=== PATIENT | female | born 1955 | race Caucasian/White ===

== ENCOUNTER → 2024-03-31 10:19 | Outpatient (REF) | payer OTHER, SELFPAY | LOC: RAD 10:19 | PROVIDERS: ATTENDING PHYSICIAN Surgery Vascular Surgery; FAMILY PHYSICIAN Internal Medicine; REFERRING PHYSICIAN Internal Medicine Cardiovascular Disease | DX: I73.9 Peripheral vascular disease, unspecified (principal) | CPT/HCPCS: 75635; Q9967 ==

== ENCOUNTER 2024-05-17 06:00 | Inpatient (IN) | payer OTHER, MEDICARE, SELFPAY ==
[2024-05-13 09:28] VITALS: BMI 33.9
[2024-05-13 10:07] LABS: % Basophils 1.1 % (0-2); % Eosinophils 2.7 % (0-6); % Immature Granulocytes 0.2 % (0-0.5); % Lymphocytes 28.8 % (20.5-51.1); % Neutrophils 60.2 % (42.2-75.2); Absolute Basophils 0.1 10^3/uL (0-0.2); Absolute Eosinophils 0.2 10^3/uL (0-0.7); Absolute Lymphocytes 2.4 10^3/uL (1.2-3.4); Absolute Monocytes 0.6 10^3/uL (0.1-0.6); Blood Urea Nitrogen 23 mg/dl (7-17); Calcium 9.7 mg/dl (8.4-10.2); Carbon Dioxide 28 mmol/L (22-30); Chloride 98 mmol/L (98-107); Estimated Creatinine Clearance 67 ml/min; Glucose 98 mg/dl (70-99); Hematocrit 37.4 % (37.0-47.0); Hemoglobin 12.8 g/dL (12.0-16.0); Mean Corp Hgb Conc. 34.2 g/dL (33.0-37.0); Mean Corpuscular Hgb 30.2 pg (27.0-31.0); Mean Corpuscular Volume 88.2 fL (81.0-99.0); Mean Platelet Volume 9.5 fL (7.4-10.4); Nucleated Red Blood Cells % 0 %; Platelet Count 210 10^3/uL (130-400); Potassium 4.5 mmol/L (3.5-5.1); Red Blood Cell Count 4.24 10^6/uL (4.20-5.40); Sodium 139 mmol/L (135-145); White Blood Cell Count 8.3 10^3/uL (4.8-10.8); eGFR > 60.00
[2024-05-13 10:11] LABS: INR 0.96; PT 13.3 Sec (11.4-14.6)
[2024-05-13 10:12] LABS: APTT 31.7 Sec (23.4-35.0)
[2024-05-17] VITALS (25 sets, daily range): BP systolic 75–147; BP diastolic 40–94; BMI 33.6
[2024-05-17] MEDS: BACTROBAN NASAL 1 GRAM NASAL (06:50)
[2024-05-17] MEDS: PERIDEX 0.12% ORAL RINSE 15 ML PO (06:51)
--- NOTE | 2024-05-17 07:01 | W.SUR.PREOP ---
Pre-Operative Surgical Note
-
I have examined this patient prior to the performance of the scheduled procedure.
The patient's condition is unchanged from the time of the current History and
Physical and the patient is able to undergo the scheduled procedure.
[2024-05-17 12:13] LABS: ACT-LR - POC 276 Seconds (116-155)
[2024-05-17 12:24] LABS: B.E. - POC -4.4 mmol/L; Glucose - POC 160 mg/dl (70-99); HCO3 - POC 22 mmol/L (21-28); Hematocrit - POC 32 % PCV (37-47); Hemodilution- POC No; Ionized Calcium - POC 0.99 mmol/L (1.15-1.33); Lactate - POC 1.19 mmol/L (0.36-0.75); O2 Saturation %Calculated-POC 98.4 % (94-98); PCO2 - POC 42 mmHg (35-48); PO2 - POC 123 mmHg (83-108); Potassium - POC 3.6 mmol/L (3.5-5.1); Sodium - POC 138 mmol/L (136-145); pH - POC 7.32 (7.35-7.45)
--- NOTE | 2024-05-17 14:08 | W.SUR.POST ---
Surgical Immediate Post Op
Note
Pre Op Diagnosis: PAD
Post Op Diagnosis: PAD
Procedure Performed: Aorto bi fem bypass with bilateral femoral endarterectomies
Primary Surgeon: Jamaal Patel MD
Product Assembler: JENNIFER Frazier
Anesthesia: GETA
Estimated Blood Loss: 1 L EBL, 670ml in cell saver
Fluids: See anesthesia flow sheet
Drains/Shunts: N/A
Specimens/Cultures: Femoral plaque
Doppler/Duplex/Angio (Y/N): Y, doppler
Complications: none
Operative Findings: successful aorto bi femoral bypass
--- NOTE | 2024-05-17 14:29 | W.PN.UPDATE ---
Update Note
Progress Note Update
Obtained verbal consent from patient's spouse Kit Mahajan to run exposure panel.
[2024-05-17] MEDS: NEO-SYNEPHRINE 250 IV (14:36)
[2024-05-17] MEDS: DILAUDID PCA 30 IV (15:00)
[2024-05-17] MEDS: SUBLIMAZE 25 MCG IV (15:07)
[2024-05-17 15:16] LABS: INR 1.29; PT 16.7 Sec (11.4-14.6)
[2024-05-17 15:17] LABS: APTT 28.8 Sec (23.4-35.0); Hematocrit 38.4 % (37.0-47.0); Hemoglobin 13.4 g/dL (12.0-16.0); Mean Corp Hgb Conc. 34.9 g/dL (33.0-37.0); Mean Corpuscular Hgb 29.8 pg (27.0-31.0); Mean Corpuscular Volume 85.5 fL (81.0-99.0); Mean Platelet Volume 9.5 fL (7.4-10.4); Platelet Count 182 10^3/uL (130-400); Red Blood Cell Count 4.49 10^6/uL (4.20-5.40); Red Cell Dist. Width 14.6 % (11.5-14.5); White Blood Cell Count 23.3 10^3/uL (4.8-10.8)
[2024-05-17] MEDS: NSS 500 IV (15:27)
[2024-05-17 15:42] LABS: Blood Urea Nitrogen 17 mg/dl (7-17); Calcium 6.6 mg/dl (8.4-10.2); Carbon Dioxide 18 mmol/L (22-30); Chloride 108 mmol/L (98-107); Estimated Creatinine Clearance 86 ml/min; Glucose 156 mg/dl (70-99); Potassium 3.6 mmol/L (3.5-5.1); Sodium 136 mmol/L (135-145); eGFR > 60.00
[2024-05-17] MEDS: NSS 1000 IV ×2 (16:00→18:21)
--- NOTE | 2024-05-17 16:29 | PTCARENOTE ---
Received patient to room 3363. Patient handoff completed with PATTERN KEEPER. patient is AAOx4, on simple mask, oxygen saturation 100%. Patient is Sinus rhythm on monitor, YAMIL gtt running at 40mcg/min. MAP 88. Pressure measured by jelly Lay'ed to
atmospheric pressure and leveled at phlebostatic axis. Patient has one unit of blood running in by gravity, also has dilaudid SCOOP MACHINE OPERATOR and NSS infusing peripherally. Patient has right [place] sump , connected it to wall suction. Patient has Midline
incision and bilateral groin incisions, all with ZAKIYA dressings, blinking orange. Villa draining clear urine. Pulses by doppler. Will review orders, oriented patient to room, call dougherty within reach.
--- NOTE | 2024-05-17 16:32 | CON.INTV ---
Consultation
Consultation Request
Date/Time Consultation Requested: 05/17/2024 - 1244
Date/Time Consultation Performed: 05/17/2024 - 1307
Requesting Provider: JENNIFER James
Performing Provider: Madhu Neves MD
Reason for Consultation: s/p aortobifemoral bypass
Medical History
-
Chief Complaint: Elective lower extremity bypass + endarterectomies
History of Present Illness:
69-year-old female former tobacco smoker with a past medical history of PAD with intermittent claudication, right carotid artery stenosis, hyperlipidemia, hypertension, and history of bowel palpitations who presents with elective lower extremity
femoral bypass with femoral endarterectomies. Patient known to vascular surgery service with last visit on 04/16/[address] Patel. Patient has extensive atherosclerotic disease which was shown on CTA abdominal aorta with runoff from 03/31/2024.
The distal abdominal aorta has >70% stenosis just proximal to the iliac bifurcation. She has severe multifocal stenoses throughout the iliofemoral, femoral-popliteal, and infrapopliteal arteries with three-vessel runoff on the left and at least a
two-vessel runoff on the right. Also occlusion of the left common and internal iliac arteries with distal reconstitution via the epigastric artery. Bilateral internal iliac arteries are occluded. Vascular intervention was discussed and patient
agreed to an aortobifemoral artery bypass with possible endarterectomies. Today she underwent aortobifemoral bypass with bilateral femoral neurectomies with no immediate complications. Postoperatively she did require 2 units PRBC transfusions due
to bleeding. She also was hypotensive with SBP in the 80s and required Hans-Synephrine. Patient being transferred to the ICU for further care, and help desk technician services consulted for additional management/recommendations.
Patient arrived to the ICU at approximately 4:30 PM on 05/17/2024. I saw her immediately afterwards. She was resting in bed in no acute distress. Her main complaint is that she is thirsty and has dry mouth. Heart rate 97, BP via left radial
A-line 126/65, BP via NIBP: 145 127, saturating 99% on RA with NGT on LCWS; she is currently on Hans-Synephrine at 30mcg/min.
PMHx: Hypertension, hyperlipidemia, PAD with intermittent claudication, former tobacco smoker, heart palpitations, right carotid artery stenosis, history of atypical chest pain
PSHx: Tonsillectomy, cholecystectomy, left broken shoulder surgery
Past Medical History
Past Medical History: Other (Negative unless mentioned above)
Past Surgical History: Other (Negative unless mentioned above)
Social History
Tobacco: Former Smoker (Previously smoked 3 PPD x 30 years - quit roughly in 1998)
Alcohol: None
Drug: None
Employment: Not Employed ([employer])
Family History
Family History: CAD (Father), Cancer (Mother: Colon cancer) and Other (Mother: History of strokes/TIA)
Allergies / Home Medications
Allergies
Allergy/AdvReac Type Severity Reaction Status Date / Time
cilostazol Allergy Severe Verified 05/17/24 06:21
Tachycardia
Home Medications
�Medication �Instructions �Recorded �Confirmed �Last Taken �Type
aspirin 81 mg tablet,delayed 81 mg PO DAILY 05/11/24 05/17/24 05/17/24 04:00 History
release
atorvastatin 40 mg tablet 40 mg PO HS 05/11/24 05/17/24 05/15/24 20:00 History
olmesartan 40 1 tab PO DAILY 05/11/24 05/17/24 05/16/24 06:00 History
mg-hydrochlorothiazide 25 mg tablet
temazepam 15 mg capsule 15 mg PO HS PRN sleep 05/11/24 05/11/24 Unknown History
Review of Systems
-
History Source: Patient
All other systems: Negative unless noted
Vitals / Labs / Diagnostic Testing
Vital Signs
Temp Pulse Resp BP Pulse Ox
98.1 F 88 16 97/57 100
05/17/24 06:10 05/17/24 15:15 05/17/24 15:13 05/17/24 15:15 11/11/24 15:15
Lab Data
05/17/24 14:58
Laboratory Results
05/17/24
14:58
PT 16.7 H
INR 1.29
APTT 28.8
Diagnostic Testing:
Physical Exam
-
HEENT: Normocephalic and Anicteric
Cardiovascular: S1/S2 and Peripheral Edema (negative)
Respiratory: Clear, Wheeze (negative), Rales (negative), Rhonchi (negative) and Non-Labored Respirations
GI: Soft, Distended (Abdominal obesity), Non Tender and Normal Bowel Sounds
Neurology: AO x 3
Skin: Warm, Dry and Other (Vertical bandage along left side of abdomen + bandages along bilateral groins)
General: Respiratory Distress (negative), Comfortable, Chills (negative) and Sweats (negative)
Assessment
-
Assessment: 69-year-old female former tobacco smoker with a past medical history of PAD with intermittent claudication, right carotid artery stenosis, hyperlipidemia, hypertension, and history of bowel palpitations who presents with elective lower
extremity femoral bypass with femoral endarterectomies. Patient known to vascular surgery service with last visit on 04/16/[address] Patel. Patient has extensive atherosclerotic disease which was shown on CTA abdominal aorta with runoff from
03/31/2024. The distal abdominal aorta has >70% stenosis just proximal to the iliac bifurcation. She has severe multifocal stenoses throughout the iliofemoral, femoral-popliteal, and infrapopliteal arteries with three-vessel runoff on the left and
at least a two-vessel runoff on the right. Also occlusion of the left common and internal iliac arteries with distal reconstitution via the epigastric artery. Bilateral internal iliac arteries are occluded. Vascular intervention was discussed and
patient agreed to an aortobifemoral artery bypass with possible endarterectomies. Today she underwent aortobifemoral bypass with bilateral femoral neurectomies with no immediate complications. Postoperatively she did require 2 units PRBC
transfusions due to bleeding. She also was hypotensive with SBP in the 80s and required Hans-Synephrine. Patient being transferred to the ICU for further care, and help desk technician services consulted for additional management/recommendations.
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
Impression:
#PAD s/p aortobifemoral bypass with bilateral femoral endarterectomies (POD #0)
#Acute anemia due to above (s/p 2 units PRBC in PACU on 05/17/2024)
#Leukocytosis � likely reactive due to above
#Metabolic acidosis with normal anion gap with acute respiratory acidosis (under-compensated) - suspected to be due to surgery with transient hypotension with lactic acidosis
#Lactic acidosis
#Hypocalcemia
#Former tobacco smoker with >90 pack-year Hx (quit 1998)
#HTN
#HLD
#Right carotid artery stenosis
#Obesity (BMI: 33.6)
Plan:
Postoperative surgical intensive care unit monitoring
Supplemental oxygen as needed to maintain SpO2 >90-94%
prn nebulized bronchodilators
Incentive spirometry encouraged 10x per hour for at least 4 hrs a day
Aspiration precautions
Pain control
Continue LCWS via NGT
- Keep NPO until advised otherwise by surgery
Neuro and vascular checks per protocol
Maintain MAP>65 currently on Hans-Synephrine at 30mcg/min --> wean as tolerated
Replete electrolytes with K>4, Mg>2
Maintain euglycemia with goal BG 140-180
Vascular surgery following-correspondence and operative notes reviewed
Transfuse blood products as needed to keep Hb>7g/dL, and plt>50k (given post-operative status)
Given that she quit smoking >15 years ago, she does not qualify for lung cancer screening via LDCT chest
DVT prophylaxis
Early nutrition
Early mobilization as tolerated
Critical care statement: A total of 43 minutes of critical care time was provided for this patient today. This includes management of unstable vital signs, evaluation of the patient at bedside, reviewing the patient's pertinent medical records
including radiographs, microbiology, laboratory evaluations, and discussion with primary team, consultants, pharmacy, nutrition, physical therapy, case management, charge nurse, critical care nursing, and respiratory therapy.
Data:
CTA Abd aorta with runoff 03/31/2024:
Marked atherosclerotic disease throughout the arterial vasculature of the abdomen, pelvis, and bilateral lower extremities discussed in detail above. The distal abdominal aorta demonstrates greater than 70% stenosis just proximal to the iliac
bifurcation. There is occlusion of the left common and internal iliac arteries with distal reconstitution via the epigastric artery. Bilateral internal iliac arteries are occluded. Severe multifocal stenoses throughout the iliofemoral, femoral
popliteal, and infrapopliteal arteries with at least a two-vessel runoff on the right (right posterior tibial artery is questionably patent) and a 3 vessel runoff on the left.
--- NOTE | 2024-05-17 16:38 | OR.RPT ---
Operative Report
Operative Report
PROCEDURE DATE: 05/17/2024
Preoperative diagnosis: Debilitating bilateral lower extremity claudication and early ischemic rest pain.
Postoperative diagnosis: Same
Procedure:
1. Aortobifemoral artery bypass with 14 mm x 7 mm bifurcated Hemashield dacron graft.
2. Bilateral femoral endarterectomies.
Surgeon: Jorge
Artillery Meteorological Man: LUIS Vidal, required for all aspects of procedure including assistance with traction/countertraction, following a suture line, assistance with closure.
Complications: None
Anesthesia: General
Indications for procedure:
Debilitating bilateral lower extremity claudication. In addition had numbness/tingling/early rest pain like symptoms requiring her to get up from bed and/or walk around at night. Risk/benefit/alternatives of revascularization fully discussed.
Patient with significant aorta/iliac artery occlusive disease as well as bilateral common femoral/femoral bifurcation plaque stenoses. Patient understood all wish to proceed.
Description of procedure:
Patient was identified brought to the operating room placed on the table in supine position. After the adequate administration of anesthesia she was prepped and draped in the standard surgical fashion. A standard preoperative timeout was
undertaken and everybody was in agreement the plan. Longitudinal incision made in the right groin that was carried through skin subcutaneous tissue. Moderate habitus resulting in moderate depth of subcutaneous tissue. Dissected down to the level
of the inguinal ligament. Any lymphatic type vessels or structures were ligated between silk ties and divided. I dissected the common femoral artery as it emerged from underneath the malignant. I carefully dissected the common femoral artery to
the femoral bifurcation. The SFA was noted to be soft about 3 to 4 cm beyond the origin and a vessel loop passed around it which was double looped but not yet tightened. Next, I dissected back to the origin of the profunda. I dissected a few
centimeters beyond the origin. A crossing vein was ligated between silk ties and divided. Circumferential dissection was undertaken and a vascular passed around the profunda here. It was noted to be reasonably soft. Now I dissected underneath
the inguinal ligament and the circumflex iliac vein or vein of sorrow was clipped and divided. I initiated the retroperitoneal tunnel from here.
Now returned my attention to the left groin. Similar incision and dissection was undertaken. Again moderate habitus resulting in moderate depth of subcutaneous tissue. I dissected down to the level inguinal ligament ligating any lymphatic
structures between silk ties and then dividing them. Similar exposure of the common femoral and then the femoral bifurcation was undertaken. The SFA was soft just beyond the origin and circumferentially dissected here. Profunda was also noted to
be soft just beyond the origin and vascular passed around it here. Any additional branches were also controlled with Vesseloops. Again I dissected underneath inguinal ligament and ligated/clipped and divided the circumflex iliac vein and then
initiated a retroperitoneal tunnel from here.
I now turned my attention to the abdomen. Standard midline laparotomy incision was undertaken. Patient's habitus resulted in significant subcutaneous depth/fatty tissue. Therefore the electrocautery was used to dissect down to the level of the
linea alba. It was at least 7 to 8 cm of subcutaneous fat down to this level. Once I dissected the linea alba with the electrocautery, I then grasped the peritoneum carefully and incised it sharply with the Metzenbaum. I then entered the
peritoneal cavity. I swept my finger to ensure no adhesions. I then opened the entirety of the peritoneum along the length of the incision. The transverse colon was reflected cephalad, and manual retraction was used to reflect the small bowel to
the right lower quadrant. As such I was able to sharply dissect the duodenum/tissues surrounding it off the retroperitoneum. Once I completed this, I inserted Omni self-retaining retractor system. Next, I incised the posterior
peritoneum/retroperitoneum over the aorta. I then dissected this to the level of the left renal artery which I could see which was just below or at the level of the renal vein I could see crossing. The aorta was somewhat soft here although I could
palpate some plaque in it. For about 4 cm and then the aorta became very hard with circumferential calcified plaque. The WILLIAM was carefully dissected and a vessel loop passed around it. I then continued to dissect to the level of the aortic
bifurcation. Both iliacs were severely hardened. The mid to distal aorta and the iliacs were also hard and that I did not think they were easily clampable. At this point I very carefully circumferentially dissected the aorta in the immediate
infrarenal segment and passed an umbilical tape so that I could place a Derra or Satinsky type clamp and transect the aorta just distal to there. I then tried to circumferentially dissect the aorta just proximal to the WILLIAM so that I could oversew
the stump there. It was a severely hardened aorta. I noted significant venous bleeding from the right posterior tissues of the aorta. I was able to quickly identify that there was a caval bleed. It became apparent that there was a branch that
had avulsed off. I clipped the branch distally. I then finger controlled the bleeding while I placed a running 5-0 Prolene suture on the cava and the rent. As such I was able to seal up this bleeding point and then tied down my suture.
Hemostasis was fully noted here. It appeared that this was a posterior vein branch that connected to the renal vein. (Ran posterior to the aorta and then there was a confluence with the renal vein). I clipped the other side of this vein. Now I
had control. At this point I felt that I would just place a clamp and crush the plaque laden aortic tissues distally and then oversew the distal aortic stump after I transected the aorta as best I could. I now created retroperitoneal tunnels
following the iliacs to the groins where I had initiated the retroperitoneal tunnels. Careful finger blunt dissection was undertaken taking care to stay directly on top of the external iliac arteries so as to avoid any injury to ureter or other
structures. I was able to pass aortic clamp through first from the right side than the left side and then position and umbilical tape. Now that I had my retroperitoneal tunnels made, I then gave the patient an appropriate dose of heparin. After 3
minutes heparin circulation time, I then clamped the infrarenal aorta with a Derra clamp. I then transected it a couple centimeters beyond there. Of note, I had clamped the aorta distally just proximal to the WILLIAM. There was circumferential plaque
but the lumen was widely patent at the transection site. I then tried to oversew the distal aortic stump. Would prove very challenging due to the heavy nature of the plaque. But I ran a few suture lines using 4-0 Prolene and 3-0 Prolene running
suture. In addition, I placed 2 heavy silk ties slightly more distally. Together these were able to control any backbleeding. I transected the WILLIAM and there was really no flow in the WILLIAM (chronically occluded). Therefore I then clipped it. At
this point I brought a 14 mm x 7 mm bifurcated Hemashield dacron graft onto the field. I trimmed the main body portion, and sewed an end-to-end anastomosis to the proximal infrarenal aorta. Care was taken to take large posterior bites inclusive of
a posterior lumbar branch there that I had clipped and divided. Due to circumferential plaque throughout the aorta, this proved to be very challenging but I was able to complete the anastomosis. I placed a couple repair 3-0 Prolene [id number]
type sutures prior to releasing my clamp. Once I felt that the suture line would be hemostatic I then clamped the graft limbs and then released my Derra clamp on the aorta. There was excellent pulsatile flow into the graft limbs. The suture
line. Hemostatic. Now I passed my iliac limbs of the graft through the retroperitoneal tunnels to the groins bilaterally.
I first began with the right groin. I tightened a doubly vessel loop on the proximal common femoral artery (though to palpation and felt completely occluded with bulky plaque). I placed profunda clamps on the SFA and profunda. I made an
arteriotomy on the distal common femoral artery extending onto the SFA. I extended onto the SFA until it was relatively soft and beyond the majority the plaque. The wall in the common femoral was fairly thinned more proximally and I had great
concern going more proximally therefore. In addition given that there was no real reason to retrograde perfused the pelvis (chronically occluded internal iliac arteries) I felt that I would just leave the proximal common femoral artery plaque. I
used a [place] to endarterectomized the plaque at the distal common femoral artery onto the SFA. I was able to achieve a nice) the SFA. I then grasped the plaque and everted out of the origin of the profunda. However I difficulty seeing my endpoint
very well and the profundus of plaque went further down than I hoped and I had not made an arteriotomy onto the profunda but rather was looking down the barrel of it. I therefore then gained further exposure on the profunda and clamped the branch
points carefully dissecting each of the branches. I then elected to transect the common femoral artery distally. I did this and then I was able to look down the barrel of the profunda and then nice and cleanly get out any residual debris and
confirm a good endpoint now. Now had good endpoints on the SFA and profunda. I confirmed no residual debris after removing any fine debris with fine forceps. The arteriotomy had hooded onto the SFA overarching the origin the profunda. And now I
transected the distal common femoral artery. Therefore I elected to do an end-to-end anastomosis beveling the iliac limb of the graft and putting it into and onto the SFA overarching the profunda. This was done with a running 5-0 Prolene suture.
Prior to completing and tying down my suture line I backbled the makah arteries which backbled well. I then flushed out the graft limb and then completed and tied in my suture line. Now I released my clamps and there was excellent pulsatile flow
in the SFA and profunda. Doppler confirmed excellent signals that were heavily graft augmented. I placed heavy silk ties on the proximal common femoral artery so that any small inflow makah bleeding or branch bleeding would be controlled and this
did control that. At this point I was very satisfied. Hemostasis was noted in the suture line. I then turned my attention to the left groin.
In the left groin I placed profunda clamps on the SFA and profunda origins. I made an arteriotomy in the distal common femoral artery and put it onto the SFA where it was soft. This was done with an 11 blade and a Obrien scissor. There was a bulky
plaque at the origin of the profunda and I was able to use a [place] to endarterectomized this plaque and I nicely en bloc was able to everted out of the origin of the SFA, the origin of the profunda and then back slightly in the common femoral artery
so as to allow myself a nice rim of sewing. Any fine debris was then removed with fine forceps. I then beveled the graft and sewed an end-to-side anastomosis using a running 5-0 Prolene suture. Prior to completing tied to my suture line I
backbled and forward bled the makah artery and then flushed out the graft. I then completed and tied down my suture line. Next I released flow in the makah artery. There was excellent pulsatile flow. Doppler confirmed excellent signals in the
SFA and profunda which were heavily graft augmented. Hemostasis was noted in the suture line.
At this point I turned my attention back to the abdomen. I reexposed the proximal anastomosis and graft region. A couple venous oozers were clipped. I then irrigated and achieved full hemostasis. There was slight oozing from the posterior wall
of the artery where I had placed to repair suture. No pulsatile bleeding though. Topical hemostatic agents were used and full hemostasis was noted. I given protamine to reverse the heparin. I now confirmed hemostasis again. I irrigated. I then
used 3-0 Vicryl suture to close the retroperitoneal tissues over the graft. Next, I confirmed positioning of the NG tube. I restored the small bowel to their makah position and the omentum was restored to its normal position. The abdominal
cavity was then closed using #1 running PDS suture. This was tied down. The extensive subcutaneous fatty layer was closed with running 2-0 Vicryl suture. Skin clips were then applied. The groins were then confirmed to be hemostatic. They were
both irrigated fully. They were closed in layers using 2-0 Vicryl followed by 3-0 Vicryl running suture followed by skin clips. Patient tolerated the procedure well. She had excellent dopplerable bilateral pedal signals (right DP and PT, left PT
strongly, DP slightly less strongly).
--- NOTE | 2024-05-17 16:45 | PTCARENOTE ---
ZAKIYA dressings all blinking orange. Vascular ELECTRICAL CONTROL ASSEMBLER notified at bedside
[2024-05-17] MEDS: CALCIUM GLUCONATE 100 IV (17:08)
[2024-05-17 17:37] LABS: Glucose - Point of Care 157 mg/dl (70-99)
[2024-05-17] MEDS: OFIRMEV 100 IV ×2 (18:11→23:00)
[2024-05-17 18:20] LABS: Hepatitis B Surface Antigen Negative (Negative)
[2024-05-17 18:37] LABS: Hepatitis B Surface Antibody Negative; Hepatitis C Antibody Negative (Negative)
--- NOTE | 2024-05-17 18:37 | PTCARENOTE ---
Unit of blood finished infusing, have titrated john gtt down to 20 as charted in worklist. patient has CIVIL CELEBRANT. Calcium IV given, ofirmev hanging. Pain is tolerated at this time. Doppler signals remain unchanged.
--- NOTE | 2024-05-17 18:45 | SUR.PHASEI ---
pacu addendum - patient post op bi-fem and right fem endart. in pacu. arrived with low BP - Hans gtt up and running and IV fluids running wide, - sleeping but arouses - c/o of pain abd and right groin - medicating carefully with low BP and patient
does fall asleep mid sentenc. Titrating hans for BP - Suly Arciniega DIAGNOSTIC RADIOLOGIST TT with assessment and BP varying from right arm cuff to left radial eneida. Using Left eneida for titration. Dr Patel and Suly Arciniega DIAGNOSTIC RADIOLOGIST visit in pacu - reviewed doppler signal pulses. PT's
strongest signals bilaterally. Per Dr Patel - 500cc fluid bolus given and packed cells hung after bolus. Hans at 40 mcg/min. Bp > 100. Medicated with REACH TRUCK OPERATOR dilaudid - patient instructed in use and small dose of fentanyl due to low BP. Dr Patel aware
that all ZAKIYA dressings flashing orange. appear to have good seals. Suly Arciniega TT with critical value of calcium 6.6. Discharge to ICCU - hand off at bedside.
Family updated in waiting room
--- NOTE | 2024-05-17 20:00 | PTCARENOTE ---
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 IV's WNL- IVF, Hans, Dilaudid RECEPTIONIST AIRLINE LOUNGE infusing as documented. L sandra AL WNL. Sat 97% on 2LNC. R NGT to LIWS draining small amt bilious output.
Villa with adequate amt output. POC discussed, call dougherty with pt.
[2024-05-17 22:21] LABS: Hematocrit 40.3 % (37.0-47.0); Hemoglobin 14.4 g/dL (12.0-16.0); Mean Corp Hgb Conc. 35.7 g/dL (33.0-37.0); Mean Corpuscular Hgb 30.3 pg (27.0-31.0); Mean Corpuscular Volume 84.7 fL (81.0-99.0); Mean Platelet Volume 9.5 fL (7.4-10.4); Platelet Count 157 10^3/uL (130-400); Red Blood Cell Count 4.76 10^6/uL (4.20-5.40); Red Cell Dist. Width 14.6 % (11.5-14.5); White Blood Cell Count 18.1 10^3/uL (4.8-10.8)
[2024-05-17 22:46] LABS: ALT (SGPT) 17 U/L (0-35); AST (SGOT) 41 U/L (14-36); Albumin 2.5 g/dl (3.5-5.0); Alkaline Phosphatase 46 U/L (38-126); Blood Urea Nitrogen 17 mg/dl (7-17); Calcium 6.9 mg/dl (8.4-10.2); Carbon Dioxide 16 mmol/L (22-30); Chloride 110 mmol/L (98-107); Estimated Creatinine Clearance 76 ml/min; Glucose 145 mg/dl (70-99); Potassium 4.1 mmol/L (3.5-5.1); Sodium 136 mmol/L (135-145); Total Bilirubin 1.2 mg/dl (0.2-1.3); Total Protein 4.9 g/dl (6.3-8.2); eGFR > 60.00
[2024-05-17] MEDS: HEPARIN 5000 UNITS SC (23:01)
[2024-05-18] VITALS (38 sets, daily range): BP systolic 80–128; BP diastolic 33–88; BMI 35.7
--- NOTE | 2024-05-18 | PTCARENOTE ---
no changes in pt assessment.
[2024-05-18] MEDS: NSS 1000 IV ×6 (01:06→19:48)
[2024-05-18 01:20] LABS: Glucose - Point of Care 137 mg/dl (70-99)
[2024-05-18] MEDS: OFIRMEV 100 IV ×2 (03:32→08:59)
[2024-05-18 03:33] LABS: Hematocrit 39.2 % (37.0-47.0); Hemoglobin 13.8 g/dL (12.0-16.0); Mean Corp Hgb Conc. 35.2 g/dL (33.0-37.0); Mean Corpuscular Hgb 30.5 pg (27.0-31.0); Mean Corpuscular Volume 86.5 fL (81.0-99.0); Mean Platelet Volume 9.5 fL (7.4-10.4); Platelet Count 169 10^3/uL (130-400); Red Blood Cell Count 4.53 10^6/uL (4.20-5.40); Red Cell Dist. Width 14.8 % (11.5-14.5); White Blood Cell Count 16.2 10^3/uL (4.8-10.8)
[2024-05-18 03:40] LABS: INR 1.14; PT 15.2 Sec (11.4-14.6)
[2024-05-18 03:41] LABS: APTT 29.1 Sec (23.4-35.0)
--- NOTE | 2024-05-18 04:00 | PTCARENOTE ---
no changes in assessment, CHG cloths/nava care. call dougherty with pt.
[2024-05-18 04:04] LABS: Blood Urea Nitrogen 19 mg/dl (7-17); Calcium 6.9 mg/dl (8.4-10.2); Carbon Dioxide 18 mmol/L (22-30); Chloride 112 mmol/L (98-107); Estimated Creatinine Clearance 76 ml/min; Glucose 134 mg/dl (70-99); Magnesium 1.7 mg/dl (1.6-2.3); Phosphorus 3.6 mg/dl (2.5-4.5); Potassium 4.1 mmol/L (3.5-5.1); Sodium 138 mmol/L (135-145); eGFR > 60.00
[2024-05-18] MEDS: CALCIUM GLUCONATE 100 IV ×2 (05:02→16:13)
[2024-05-18] MEDS: PROTONIX IV 40 MG IV (07:26)
[2024-05-18] MEDS: HEPARIN 5000 UNITS SC ×2 (07:26→16:13)
[2024-05-18] MEDS: ASPIRIN 300 MG RECTAL (07:27)
--- NOTE | 2024-05-18 07:29 | W.PN.VS ---
Addendum entered and electronically signed by Jamaal Patel MD 05/18/24 08:25:
Seen and examined with LUIS Arciniega. Agree with findings as noted below. Patient is without significant complaints. Pain is well-tolerated. Notes that her preoperative numbness in her feet is completely resolved. On exam/ Vital signs reviewed - and
noted. UOP good, reviewed. she is awake and alert. NG tube is slightly bilious. Output reviewed. Abdomen is soft, nondistended. Dressing is clean dry and intact. Minimal appropriate incisional tenderness. Groins are flat bilaterally.
Dressings clean dry and intact bilaterally. Feet are both warm with excellent dopplerable signals. Labs reviewed. Plan/as discussed and noted below.
Original Note:
Today's Communication / Plan
-
Patient seen and examined with Dr. Jamaal Patel, below plan reviewed with attending.
Assessment/Plan
-
Assessment: 69-year-old female POD #1 aortobifem bypass with bilateral femoral endarterectomies
Plan:
Continue strict n.p.o.
Continue NG tube with low continuous suction
Continue hourly I and O monitoring
Discontinue arterial line
Continue Villa catheter for strict I and O monitoring
Can get out of bed to chair
Continue ICU level of care today
DVT prophylaxis
GI prophylaxis
Encourage incentive spirometry
Subjective Data
-
Date of Service: May 18, 2024
Patient seen and examined at bedside, reports well managed post operative pain. Denies nausea, vomiting, fever, and chills. Mostly reports difficulty sleeping overnight. Does endorse improvement to near resolution in preoperative
numbness/paresthesia at bilateral feet.
Objective Data
-
Vital Signs
Temp Pulse Resp BP Pulse Ox
98.9 F 65 11 109/87 98
05/18/24 03:48 05/18/24 07:00 05/18/24 07:00 05/17/24 20:00 05/18/24 07:00
Intake and Output
05/17/24 05/18/24 05/19/24
06:59 06:59 06:59
Intake Total 2889.4 / 3039.4 150 / 150
Output Total 1200 / 1200
Balance 1689.4 / 1839.4 150 / 150
Intake:
IV fluids (Total) 2889.4 / 3039.4 150 / 150
Nss 1,000 ml @ 150 mls/hr IV . 2099 / 2250 150 / 150
[id number] [facility] Rx#:[id number]
john 89 / 89
nss 700 / 700
rubber flap cutter dilaudid 0.4 / 0.4
Amount instilled into GI Tube ( 0 / 0
Total)
Pioneer Sump 0 / 0
Output:
Gastrointestinal tube output ( 185 / 185
Total)
Pioneer Sump 185 / 185
Urine, Villa 1015 / 1015
Lab Results
05/18/24 03:18
05/18/24 03:18
Calcium 6.9 mg/dl (8.4-10.2) L* 05/18/24 03:18
Phosphorus 3.6 mg/dl (2.5-4.5) 05/18/24 03:18
Magnesium 1.7 mg/dl (1.6-2.3) 05/18/24 03:18
Total Bilirubin 1.2 mg/dl (0.2-1.3) 05/17/24 22:08
AST 41 U/L (14-36) H 05/17/24 22:08
ALT 17 U/L (0-35) 05/17/24 22:08
Alkaline Phosphatase 46 U/L (38-126) 05/17/24 22:08
Total Protein 4.9 g/dl (6.3-8.2) L 05/17/24 22:08
Albumin 2.5 g/dl (3.5-5.0) L 05/17/24 22:08
Physical Exam
-
AAO x 3, no apparent distress
No tachycardia
No dyspnea on room air
ABD nondistended, midline abdominal incision dressing CDI, tender over midline incision
Bilateral groin site dressing CDI, no evidence of hematoma, ulcer on compartment soft
Villa draining clear yellow urine
Bilateral feet warm, DP/PT pulse by Doppler
[2024-05-18] MEDS: APRESOLINE 5 MG IV (07:51)
--- NOTE | 2024-05-18 08:00 | PTCARENOTE ---
Received patient from material handler 1st shift. patient is AAOx4. Patient is on 2L nasal cannula saturating 100%. Left radial rosanne is readying hypertensive, PRN hydralazine administered. Rosanne zeroed to atmospheric pressure, leveled at phlebostatic axis.
patient remains NPO. Christine NG connected to low intermittent wall suction. patient may have ice chips sparingly. Pulse checks remain unchanged, by dopper bilaterally. ZAKIYA dressings intact in bilateral groins and midline abdomen. Will review
orders. plan to discontinue Rosanne and get patient OOB.
--- NOTE | 2024-05-18 08:22 | W.PN.INTV ---
Today's Communication / Plan
Recommendations
Up OOB as tolerated
NGT to LIWS
NPO
Pain control
Post-operative management per vascular surgery
Encourage IS use q1hr while awake
Neurovascular checks
Continue with ICU level of care until deemed stable enough for downgrade per vascular surgery. Shear Grinder Operator service will continue to follow along while she remains in the ICU.
Assessment
-
Assessment: 69-year-old female former tobacco smoker with a past medical history of PAD with intermittent claudication, right carotid artery stenosis, hyperlipidemia, hypertension, and history of heart palpitations who presents with elective lower
extremity femoral bypass with femoral endarterectomies. Patient known to vascular surgery service with last visit on 04/16/[address] Patel. Patient has extensive atherosclerotic disease which was shown on CTA abdominal aorta with runoff from
03/31/2024. The distal abdominal aorta has >70% stenosis just proximal to the iliac bifurcation. She has severe multifocal stenoses throughout the iliofemoral, femoral-popliteal, and infrapopliteal arteries with three-vessel runoff on the left and
at least a two-vessel runoff on the right. Also occlusion of the left common and internal iliac arteries with distal reconstitution via the epigastric artery. Bilateral internal iliac arteries are occluded. Vascular intervention was discussed and
patient agreed to an aortobifemoral artery bypass with possible endarterectomies. Today she underwent aortobifemoral bypass with bilateral femoral neurectomies with no immediate complications. Postoperatively she did require 2 units PRBC
transfusions due to bleeding. She also was hypotensive with SBP in the 80s and required Hans-Synephrine. Patient being transferred to the ICU for further care, and shopfitter services consulted for additional management/recommendations.
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
Impression:
#PAD s/p aortobifemoral bypass with bilateral femoral endarterectomies (POD #1)
#Acute anemia due to above (s/p 3 units PRBC in PACU on 05/17/2024)
#Leukocytosis � likely reactive due to above
#Metabolic acidosis with normal anion gap with acute respiratory acidosis (under-compensated) - suspected to be due to surgery with transient hypotension with lactic acidosis
#Lactic acidosis
#Hypocalcemia
#Former tobacco smoker with >90 pack-year Hx (quit 1998)
#HTN
#HLD
#Right carotid artery stenosis
#Obesity (BMI: 33.6)
Plan:
Postoperative surgical intensive care unit monitoring
Supplemental oxygen as needed to maintain SpO2 >90-94%
prn nebulized bronchodilators - not currently bronchospastic
Incentive spirometry encouraged 10x per hour for at least 4 hrs a day
Aspiration precautions
Pain control
Continue LIWS via NGT
- Keep NPO until advised otherwise by surgery
- Serial abdominal exams
Neuro and vascular checks per protocol
Maintain MAP>65 currently on Hans-Synephrine at 30mcg/min --> wean as tolerated
Replete electrolytes with K>4, Mg>2
Maintain euglycemia with goal BG 140-180
Vascular surgery following-correspondence and operative notes reviewed
Transfuse blood products as needed to keep Hb>7g/dL, and plt>50k (given post-operative status)
Given that she quit smoking >15 years ago, she does not qualify for lung cancer screening via LDCT chest
DVT prophylaxis
Early nutrition
Early mobilization as tolerated
Continue with ICU level of care until deemed stable enough for downgrade per vascular surgery. Shear Grinder Operator service will continue to follow along while she remains in the ICU.
Total time spent today was 76 minutes for this encounter. Time includes reviewing laboratory test/imaging results, reviewing pertinent medical records, obtaining and reviewing medical history, performing an appropriate exam, ordering medications,
tests and procedures. Time also includes documentation of this encounter, coordinating patient care and communicating with other healthcare professionals. Total time does not include separately billed tests performed on this date of service.
Data:
CTA Abd aorta with runoff 03/31/2024:
Marked atherosclerotic disease throughout the arterial vasculature of the abdomen, pelvis, and bilateral lower extremities discussed in detail above. The distal abdominal aorta demonstrates greater than 70% stenosis just proximal to the iliac
bifurcation. There is occlusion of the left common and internal iliac arteries with distal reconstitution via the epigastric artery. Bilateral internal iliac arteries are occluded. Severe multifocal stenoses throughout the iliofemoral, femoral
popliteal, and infrapopliteal arteries with at least a two-vessel runoff on the right (right posterior tibial artery is questionably patent) and a 3 vessel runoff on the left.
Subjective Dataa
Subjective Data
Date of Service:
Date of Service: May 18, 2024
Chief Complaint: Shear Grinder Operator Follow Up
Subjective:
Patient seen and evaluated this morning. Resting in bed in no acute distress. 2 sons, Jorden + Clark, at bedside and all questions were answered. Heart rate 88, BP 110/85 and saturating 99% on room air. Has some lower abdominal pain. NG tube on
low intermittent wall suction. She says that her lower abdominal pain is increasing but it is not severe. She denies nausea, vomiting, chest pain, SOB, MOYER, fevers or chills.
Review of Systems
General: Other (Negative unless mentioned above)
Objective Data
Data Reviewed
Vital Signs / I&O / Oxygen:
Vital Signs
Temp Pulse Resp BP Pulse Ox
98.7 F 88 18 109/87 99
05/18/24 08:01 05/18/24 08:00 05/18/24 08:00 05/17/24 20:00 05/18/24 08:00
Intake and Output
05/17/24 05/18/24 05/19/24
06:59 06:59 06:59
Intake Total 2889.4 / 3039.4 300 / 300
Output Total 1200 / 1230 60 / 60
Balance 1689.4 / 1809.4 240 / 240
SaO2 99
Nasal Cannula flow liters per 2
minute
Physical Exam
General: Respiratory Distress (negative), Comfortable, Chills (negative) and Sweats (negative)
HEENT: Normocephalic and Anicteric
Cardiovascular: S1-S2 and Peripheral Edema (negative)
Respiratory: Wheeze (negative), Crackles (negative), Rhonchi (negative) and Non-Labored Respirations
GI: Soft, Non Distended, Tender (diffusely tender to palpation), NG Tube (on LIWS) and Other (hypoactive BS)
Neurology: AO x 3 and Tremors (negative)
Skin: Warm, Dry, Cyanosis (negative) and Jaundice (negative)
Labs/Micro/Reports
Lab Data
05/18/24 03:18
05/18/24 03:18
Laboratory Results
05/17/24 05/18/24
14:58 03:18
PT 16.7 H 15.2 H
INR 1.29 1.14
APTT 28.8 29.1
--- NOTE | 2024-05-18 10:12 | CM ---
CM following re: discharge planning.
Reviewed pt's chart, met with pt. Pt's and pt's son at bedside.
Pt is a 69 year old female, admitted with primary dx of POD #1 aortobifem bypass with bilateral femoral endarterectomies.
Pt reports she lives with 2SH, 2 steps to enter, has 2 supportive children. 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 No DME, VN or SNF history.
PCP: Nancy Mcadams
Pharmacy: [facility]
D/C plan: home with anticipated no needs. to transport at discharge.
CM will follow with discharge plan updates as hospitalization progresses
--- NOTE | 2024-05-18 11:30 | PTCARENOTE ---
Patient tolerated two hours OOB in chair. Assisted patient back to bed assist x1. Doppler pulses remain unchanged. patient more unsteady when standing to get back to bed, states she is tired. Is having more abdominal pain, ADMINISTRATIVE SALES ASSISTANT dose adjusted.
Urine output for 1100 was only 15ml. 500cc bolus ordered and hanging.
[2024-05-18] MEDS: NSS 500 IV ×2 (11:45→20:14)
--- NOTE | 2024-05-18 12:04 | PTCARENOTE ---
Changed dilaudid DUST BOX TENDER dose. verified with Berlin Rosales RN.
--- NOTE | 2024-05-18 12:40 | PTCARENOTE ---
Cuff placed on left arm, significantly higher in left arm than right.
[2024-05-18 14:57] LABS: Blood Urea Nitrogen 25 mg/dl (7-17); Calcium 7.7 mg/dl (8.4-10.2); Carbon Dioxide 18 mmol/L (22-30); Chloride 111 mmol/L (98-107); Estimated Creatinine Clearance 57 ml/min; Glucose 109 mg/dl (70-99); Potassium 4.2 mmol/L (3.5-5.1); Sodium 137 mmol/L (135-145); eGFR 54.39
[2024-05-18 16:13] LABS: Hematocrit 35.1 % (37.0-47.0); Hemoglobin 12.1 g/dL (12.0-16.0)
[2024-05-18 16:21] LABS: HIV Combo Negative (Negative)
--- NOTE | 2024-05-18 16:45 | PTCARENOTE ---
vascular access team came up and placed two peripheral IVs, both 22s. 1L NSS bolus ordered, spoke with Tia Arciniega, will run bolus at 250mls. repleted calcium and sent repeat H&H. Patient continues to have marginal urinary output. Continuing to
monitor hourly. Patient states pain is 'better and tolerable but rates it 7:10'. Family present at bedside.
[2024-05-18] MEDS: FLEXBUMIN 100 IV (17:30)
--- NOTE | 2024-05-18 17:48 | PTCARENOTE ---
Notified Dr. Patel and Dr. Neves of patient's continued hypotension with bolus. Patient has limited vascular access. PICC line order placed. Ornamental Metal Fabricator Apprentice at bedside to place IJ central line.
--- NOTE | 2024-05-18 18:11 | W.SUR.POST ---
Surgical Immediate Post Op
Note
Bedside Central Line Insertion Procedure
Date of procedure: 05/18/2024
Pre Op Diagnosis: Inadequate IV access; hypotension
Post Op Diagnosis: Same as above
Procedure Performed: Central venous catheter insertion
Primary Surgeon/Proceduralist: Dr. Neves
Secondary Surgeons: N/A
Anesthesia: N/A
Estimated Blood Loss: 5cc
Fluids: N/A
Drains/Shunts: N/A
Specimens/Cultures: N/A
Doppler/Duplex/Angio (Y/N): N/A
Complications: No immediate complications
Operative Findings: 7 rwandan, 16cm long central line inserted into right IJ. Time out performed prior to start of procedure. Verbal + written consent obtained from the patient. Pt placed into Trendelenburg position then procedure started. Pt was
draped in usual fashion using anti-septic technique. Gloves, cap, facemask, hand washing and cleaning her target skin area with chlorhexidine was also performed. Pt then anesthetized with 1% lidocaine without epinephrine. Trocar inserted into
right IJ under ultrasound guidance. Ultrasound probe cover also was used. Blood return seen which was nonpulsatile. Guidewire inserted and trocar was removed entirely. Incision was made over the guidewire and dilator was inserted. Dilator then
removed and triple-lumen central venous catheter was inserted successfully and guidewire was removed entirely. Central line was sutured into place. Blood flow was suctioned out with syringe from all 3 ports and normal saline was able to be flushed
into all 3 ports without resistance. Biopatch placed over central venous catheter hub and the entire hub was covered with a Tegaderm patch. Procedure ended, drape was removed and there were no immediate complications.
[2024-05-18] MEDS: OFIRMEV IV (18:16)
--- NOTE | 2024-05-18 19:12 | PTCARENOTE ---
"Notified Dr. Patel of patient's blood pressure and marginal urine output. Dr. Patel has called, updated him on patient's vital signs and mentation. Patient's mentation unchanged, states that she is tired but otherwise WNL. At last conversation with "Azeb". Patient BP 101/52, NR 109 and Urine output from [id number] was 45. Report given to assistant shift supervisor. shift superintendent caustic cresylate RN will contact Dr. Patel with any changes."
--- NOTE | 2024-05-18 20:00 | PTCARENOTE ---
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 IV's/RIJ WNL- IVF and Dilaudid NUMERICAL CONTROL MACHINE TOOL OPERATOR infusing as documented. R NGT to LIWS draining small amt bilious
output. Dr Patel TT as requested with update- pt's BP improved after multiple IVF boluses prev shift, UO 8p 75cc- improved. 500cc additional bolus to be given per Dr Patel- BDoughertyNP to place order. POC discussed, call dougherty with pt.
[2024-05-18 22:22] LABS: Hematocrit 31.8 % (37.0-47.0); Hemoglobin 10.7 g/dL (12.0-16.0)
[2024-05-19] VITALS (28 sets, daily range): BP systolic 94–135; BP diastolic 44–70; PULSE 98; O2SAT 97; BMI 37.1
--- NOTE | 2024-05-19 | PTCARENOTE ---
Reassessed, no changes in pt assessment.
[2024-05-19] MEDS: OFIRMEV 100 IV ×3 (00:07→12:29)
[2024-05-19] MEDS: NSS 1000 IV (01:40)
--- NOTE | 2024-05-19 04:30 | PTCARENOTE ---
no changes in assessment, CHG, mouth care, nava care.
[2024-05-19 05:05] LABS: Blood Urea Nitrogen 21 mg/dl (7-17); Calcium 7.5 mg/dl (8.4-10.2); Carbon Dioxide 18 mmol/L (22-30); Chloride 115 mmol/L (98-107); Estimated Creatinine Clearance 80 ml/min; Glucose 85 mg/dl (70-99); Magnesium 1.9 mg/dl (1.6-2.3); Phosphorus 2.4 mg/dl (2.5-4.5); Potassium 3.8 mmol/L (3.5-5.1); Sodium 141 mmol/L (135-145); eGFR > 60.00
[2024-05-19 05:15] LABS: Hematocrit 29.7 % (37.0-47.0); Hemoglobin 10.1 g/dL (12.0-16.0); Mean Corpuscular Hgb 29.9 pg (27.0-31.0); Mean Corpuscular Volume 87.9 fL (81.0-99.0); Red Blood Cell Count 3.38 10^6/uL (4.20-5.40); Red Cell Dist. Width 15.2 % (11.5-14.5); White Blood Cell Count 11.7 10^3/uL (4.8-10.8)
[2024-05-19 07:18] LABS: Mean Platelet Volume 9.5 fL (7.4-10.4); Platelet Count 98 10^3/uL (130-400)
--- NOTE | 2024-05-19 07:50 | PTCARENOTE ---
Rec'd pt at 0710 awake alert and oriented resting in bed. Overall states she is feeling better. Speech is clear. Denies dizziness or headache. KAUR. Denies numbness in extremities. Admits to 6/10 mostly abd pain. Using Dilaudid ADJUNCT TRAINER as needed. 0.4mg
dose. 10 min lockout. Max dose 2.4 mg/hr. Skin is pale pink wm and dry. Extremities are pink and warm. + PT and DP pulses to bilateral LE. Respirs are unlabored. Rec'd initally on 2l nc with sats of 98%- changed to RA at 0730 with sats currently of
96%. BS sl decreased at the bases otherwise clear. Getting about 1200 on IS. Encouraged pt to use is. Coughed a moist non-prod cough x1. Monitor SR-ST 88-100. Denies chest pain. +1 generalized anasarca. VS as documented. Abd is round and soft.
Tender to palp with few hypoactive BS. Rec'd pt with R nasir panchal ng that was draining brownish drainage. Dr. Patel in at 0730 and removed NG. Pt denies passing flatus currently. Thermistor nava intact for yellow urine. Midline abd dressing is dry
and intact. ZAKIYA dressing present. Bilatearal groin dressings are D+I with ZAKIYA dressings present. IV NSS infusing at 75 ml/hr via L are IV site. Capped ints intact R hand and L arm. RIJ TLC intact-site wnl. Repositioned. Call dougherty in reach. Plan of
care reviewed with pt.
--- NOTE | 2024-05-19 08:08 | W.PN.VS ---
Today's Communication / Plan
-
Patient seen and evaluated at bedside with Dr. Jamaal Patel, below plan reviewed with attending.
Assessment/Plan
-
Assessment: 69-year-old female POD #2 aortobifem bypass with bilateral femoral endarterectomies
Plan:
NG tube discontinued
Continue I and O monitoring
Continue Villa catheter for strict I and O monitoring, may consider discontinuing later this afternoon
OOB to chair with progression to ambulation as tolerated
PT
Continue ICU level of care today
DVT prophylaxis
GI prophylaxis
Encourage incentive spirometry
Will consider Lasix for diuresis given 24-hour positive fluid status. However, currently favor observing urine output and watching trends.
Subjective Data
-
Date of Service: May 19, 2024
Patient seen and examined at bedside, continues to report well-managed postoperative pain. Denies nausea, vomiting, fever, and chills. Also does not endorse flatus, but denies belching.
Objective Data
-
Vital Signs
Temp Pulse Resp BP Pulse Ox
98.4 F 89 13 119/55 99
05/19/24 07:22 05/19/24 07:00 05/19/24 07:00 05/19/24 07:00 05/19/24 07:00
Intake and Output
05/18/24 05/19/24 05/20/24
06:59 06:59 06:59
Intake Total 2889.4 / 3039.4 6525 / 6600 75 / 75
Output Total 1200 / 1230 1515 / 1585 70 / 70
Balance 1689.4 / 1809.4 5010 / 5015 5 / 5
Intake:
IV fluids (Total) 2889.4 / 3039.4 6325 / 6400 75 / 75
NSS BOLUS 3000 / 3000
Nss 1,000 ml @ 75 mls/hr IV . 2100 / 2250 3225 / 3300 75 / 75
[id number] [facility] Rx#:[id number]
albumin 100 / 100
john 89 / 89
nss 700 / 700
weekday babysitter dilaudid 0.4 / 0.4
IV piggybacks 200 / 200
Amount instilled into GI Tube ( 0 / 0
Total)
Gregg Sump 0 / 0
Output:
Gastrointestinal tube output ( 185 / 185 500 / 500
Total)
Gregg Sump 185 / 185 500 / 500
Urine, Villa 1015 / 1045 1015 / 1085 70 / 70
Lab Results
05/19/24 04:18
05/19/24 04:18
Calcium 7.5 mg/dl (8.4-10.2) L 05/19/24 04:18
Phosphorus 2.4 mg/dl (2.5-4.5) L 05/19/24 04:18
Magnesium 1.9 mg/dl (1.6-2.3) 05/19/24 04:18
Total Bilirubin 1.2 mg/dl (0.2-1.3) 05/17/24 22:08
AST 41 U/L (14-36) H 05/17/24 22:08
ALT 17 U/L (0-35) 05/17/24 22:08
Alkaline Phosphatase 46 U/L (38-126) 05/17/24 22:08
Total Protein 4.9 g/dl (6.3-8.2) L 05/17/24 22:08
Albumin 2.5 g/dl (3.5-5.0) L 05/17/24 22:08
Physical Exam
-
AAO x 3, no apparent distress
No tachycardia
No dyspnea on room air
ABD nondistended, midline abdominal incision dressing CDI, tender over midline incision
Bilateral groin site dressing CDI, no evidence of hematoma, ulcer on compartment soft
Villa draining clear yellow urine
Bilateral feet warm, DP/PT pulse by Doppler
[2024-05-19] MEDS: ASPIRIN 300 MG RECTAL (08:14)
[2024-05-19] MEDS: HEPARIN 5000 UNITS SC ×3 (08:14→23:08)
--- NOTE | 2024-05-19 08:20 | W.PN.INTV ---
Addendum entered and electronically signed by Madhu Neves MD 05/19/24 16:20:
CDI Response:
Acute anemia: Anemia of blood loss following vascular surgery as well as dilutional from IVF
Original Note:
Today's Communication / Plan
Recommendations
Up OOB as tolerated
NGT now removed; continue pain control with serial abdominal exams
NPO
Post-operative management per vascular surgery
Encourage IS use q1hr while awake
Neurovascular checks
Continue with ICU level of care until deemed stable enough for downgrade per vascular surgery. Clinical Information Systems Director service will continue to follow along while she remains in the ICU.
Assessment
-
Assessment: 69-year-old female former tobacco smoker with a past medical history of PAD with intermittent claudication, right carotid artery stenosis, hyperlipidemia, hypertension, and history of heart palpitations who presents with elective lower
extremity femoral bypass with femoral endarterectomies. Patient known to vascular surgery service with last visit on 04/16/[address] Patel. Patient has extensive atherosclerotic disease which was shown on CTA abdominal aorta with runoff from
03/31/2024. The distal abdominal aorta has >70% stenosis just proximal to the iliac bifurcation. She has severe multifocal stenoses throughout the iliofemoral, femoral-popliteal, and infrapopliteal arteries with three-vessel runoff on the left and
at least a two-vessel runoff on the right. Also occlusion of the left common and internal iliac arteries with distal reconstitution via the epigastric artery. Bilateral internal iliac arteries are occluded. Vascular intervention was discussed and
patient agreed to an aortobifemoral artery bypass with possible endarterectomies. Today she underwent aortobifemoral bypass with bilateral femoral neurectomies with no immediate complications. Postoperatively she did require 2 units PRBC
transfusions due to bleeding. She also was hypotensive with SBP in the 80s and required Hans-Synephrine. Patient being transferred to the ICU for further care, and engineering program manager services consulted for additional management/recommendations.
Chronic conditions NURSING CARE ATTENDANT: Hypertension, hyperlipidemia, PAD with intermittent claudication, former tobacco smoker, heart palpitations, right carotid artery stenosis, history of atypical chest pain
Impression:
#PAD s/p aortobifemoral bypass with bilateral femoral endarterectomies (POD #2)
#Acute anemia due to above (s/p 3 units PRBC in PACU on 05/17/2024)
#Hypotension without shock
#Leukocytosis � likely reactive due to above
#Mild�moderate elevation of right hemidiaphragm (most appreciated initially on CXR from 05/18/2024)
#Metabolic acidosis with normal anion gap with acute respiratory acidosis (under-compensated) - suspected to be due to surgery with transient hypotension with lactic acidosis
#Lactic acidosis
#Hypocalcemia
#Former tobacco smoker with >90 pack-year Hx (quit 1998)
#HTN
#HLD
#Right carotid artery stenosis
#Obesity (BMI: 33.6)
Plan:
Postoperative surgical intensive care unit monitoring
Supplemental oxygen as needed to maintain SpO2 >90-94%
prn nebulized bronchodilators - not currently bronchospastic
Incentive spirometry encouraged 10x per hour for at least 4 hrs a day
Aspiration precautions
Pain control with dilaudid KILN FURNITURE CASTER pump with bowel regimen
NGT now removed as of this morning (05/19)
- Defer diet to surgery
- Serial abdominal exams
Neuro and vascular checks per protocol
Maintain MAP>65 currently on Hans-Synephrine at 30mcg/min --> wean as tolerated
Replete electrolytes with K>4, Mg>2
Maintain euglycemia with goal BG 140-180
Vascular surgery following-correspondence and operative notes reviewed
Transfuse blood products as needed to keep Hb>7g/dL, and plt>50k (given post-operative status)
Has required 3 units PRBC transfusion since admission with last PRBC transfusion on 05/17/2024
Given that she quit smoking >15 years ago, she does not qualify for lung cancer screening via LDCT chest
DVT prophylaxis: HSQ
Early nutrition
Early mobilization as tolerated
Continue with ICU level of care until deemed stable enough for downgrade per vascular surgery. Clinical Information Systems Director service will continue to follow along while she remains in the ICU.
Total time spent today was 37 minutes for this encounter. Time includes reviewing laboratory test/imaging results, reviewing pertinent medical records, obtaining and reviewing medical history, performing an appropriate exam, ordering medications,
tests and procedures. Time also includes documentation of this encounter, coordinating patient care and communicating with other healthcare professionals. Total time does not include separately billed tests performed on this date of service.
Data:
CTA Abd aorta with runoff 03/31/2024:
Marked atherosclerotic disease throughout the arterial vasculature of the abdomen, pelvis, and bilateral lower extremities discussed in detail above. The distal abdominal aorta demonstrates greater than 70% stenosis just proximal to the iliac
bifurcation. There is occlusion of the left common and internal iliac arteries with distal reconstitution via the epigastric artery. Bilateral internal iliac arteries are occluded. Severe multifocal stenoses throughout the iliofemoral, femoral
popliteal, and infrapopliteal arteries with at least a two-vessel runoff on the right (right posterior tibial artery is questionably patent) and a 3 vessel runoff on the left.
Subjective Dataa
Subjective Data
Date of Service:
Date of Service: May 19, 2024
Chief Complaint: Clinical Information Systems Director Follow Up
Subjective:
Pt seen and evaluated this AM. BP dropped into 80-90s overnight and given IVF with 3L IVF total. She is sitting in chair this AM in NAD. She is on room air saturating well and breathing comfortably. BP 102/54 and HR 94. Afebrile overnight.
NGT removed this morning. Currently on maintenance IVF with NS 0.9% at 75 cc/hour. Villa remains in place with reduced UOP. She is using her diluadid KILN FURNITURE CASTER pump. No bleeding seen clinically - Hb 10.1 this morning. Still having abdominal pain but
it is not worse than yesterday. She currently denies MOYER, chest pain, nausea, vomiting, diarrhea, fevers or chills.
Review of Systems
General: Other (Negative unless mentioned above)
Objective Data
Data Reviewed
Vital Signs / I&O / Oxygen:
Vital Signs
Temp Pulse Resp BP Pulse Ox
98.4 F 86 14 102/54 94
05/19/24 07:22 05/19/24 09:00 05/19/24 09:00 05/19/24 09:00 05/19/24 09:00
Intake and Output
05/18/24 05/19/24 05/20/24
06:59 06:59 06:59
Intake Total 2889.4 / 3039.4 6525 / 6600 150 / 150
Output Total 1200 / 1230 1515 / 1585 185 / 185
Balance 1689.4 / 1809.4 5010 / 5015 -35 / -35
SaO2 94
Nasal Cannula flow liters per 2
minute
Physical Exam
General: Respiratory Distress (negative), Comfortable, Chills (negative) and Sweats (negative)
HEENT: Normocephalic, Anicteric and Other (Dry mucous membranes)
Cardiovascular: S1-S2 and Peripheral Edema (negative)
Respiratory: Clear, Wheeze (negative), Crackles (negative), Rhonchi (negative) and Non-Labored Respirations
GI: Soft, Non Distended, Tender (diffusely tender to palpation) and Other (hypoactive BS)
Neurology: AO x 3 and Tremors (negative)
Skin: Warm, Dry, Cyanosis (negative) and Jaundice (negative)
Labs/Micro/Reports
Lab Data
05/19/24 04:18
05/19/24 04:18
[2024-05-19] MEDS: DILAUDID PCA 30 IV (09:31)
--- NOTE | 2024-05-19 09:53 | W.PN.UPDATE ---
Update Note
Progress Note Update
Seen and examined with LUIS Arciniega and LUIS Vidal. See their separate note. Agree with findings as noted. Patient doing well this a.m. She is without significant complaints. Abdominal pain/discomfort well-controlled. No flatus yet. No
nausea/vomiting. Intake/output fully reviewed. Vital signs fully reviewed. Abdomen soft, nondistended, nontender. Dressing clean dry and intact. Groins flat bilaterally. Dressings clean dry and intact bilaterally. Feet warm with possible 1+
right DP and left PT palpable, confirmed with excellent Doppler signals. Labs reviewed as well. Plan/as discussed and noted in VIDEO MACHINES MECHANIC note. NG tube discontinued by us. Will decrease IV fluid rate. Possible diuresis before Villa removal. Will
reassess before deciding on diuresis. Out of bed, PT/OT.
--- NOTE | 2024-05-19 09:55 | PTCARENOTE ---
Assisted oob to the chair at 0930 with assist of 2. Initially felt sl dizzy with standing that resolved quickly. HR Initially 120's With standing then down to the 90's. No complaints. Call dougherty in reach.
--- NOTE | 2024-05-19 11:12 | PN.CDI ---
CDI
- -
CDI:
Physician Documentation Request
Admit Date: 05/17/24 06:00
Dear Doctor Edinson,
05/18 progress note states 'PAD s/p aortobifemoral bypass with bilateral femoral endarterectomies (POD #1) #Acute anemia due to above (s/p 3 units PRBC in PACU on 05/17/2024)'
Could you please further clarify, in your progress note, which of the following is the most likely type of acute anemia you are evaluating, monitoring and/or treating?
Acute blood loss anemia
Acute anemia - other- please specify
Other
Use of terms such as suspected, likely, concern for, or probable (associated with a specific diagnosis that is being evaluated, monitored, or treated as if it exists) are acceptable and can be coded in the inpatient setting, when documented at the
time of discharge.
Thank you,
Tete Soria RN, BSN
CDI Specialist
tiger text
Please use your independent medical judgment in providing your response.
[2024-05-19 11:53] LABS: Glucose - Point of Care 71 mg/dl (70-99)
--- NOTE | 2024-05-19 11:54 | PTCARENOTE ---
Assisted back to bed. Tolerating being oob well. Worked with PT earlier. No changes in assessment. Pulses are unchanged. Dressings remain D+I. ZAKIYA dressings x3 in place
--- NOTE | 2024-05-19 12:05 | CM ---
CM following re: discharge planning.
Reviewed pt's chart, met with pt.
Pt reports she feels much better and was working with PT and OT today. Pt is aware that PT and OT recommend home PT/OT and she expressed her agreement. A list of VN vendors provided, pt preferred [facility]. A referral to [facility] made.
D/C plan: home with [facility] and family support. or son to transport at discharge.
CM will follow with discharge plan updaters as hospitalization progress
[2024-05-19] MEDS: FLUSH (NSS) 1 FLUSH IV ×2 (12:30→12:31)
--- NOTE | 2024-05-19 13:52 | PTCARENOTE ---
With dozing sats dipping to 88-89%- placed back on 2l nc with sats up to 97%. No other changes. States shes just tired
[2024-05-19] MEDS: D5/0.9% SODIUM CHLORIDE 1000 IV (14:18)
--- NOTE | 2024-05-19 14:46 | VNURNOTE ---
Home Health Liaison met with patient to discuss [facility] nurse/therapy, visits, schedule and homebound status. Patient would like to discuss home care services with . She understands that visits at home will be 1-2 x per week to assess and teach
medical management.
[facility] brochure provided with contact information. Patient is aware that [facility] will contact them for start of care in 1-2 days after discharge from .
[facility] referral completed in [facility] Port.
--- NOTE | 2024-05-19 15:35 | PTCARENOTE ---
Pts son visiting with pt. in earlier. Currently awake and talking to son. VS as documented. Now that she is awake sats on 2l were 99%- changed back to RA at 1530 and sats currently ew 98%. No complaints. Using Dilaudid HARDNESS INSPECTOR as needed.
--- NOTE | 2024-05-19 17:30 | PTCARENOTE ---
Assisted back oob to the chair with assist of 1. Overall no changes in assessment. Has been able to doze a few times this afternoon. Admits to feeling a little tire - however was able to get oob back into the chair just now with an assist of 1. Gait
is weak but easily able to bear wt. Abd dressing with few spots of old bloody drainage otherwise dry and intact. ZAKIYA drains on abd and groin dressings are flashing green. Sats on RA are 95-97%. VS as documented. Denies nausea but admits to
belching. Villa with avery urine. IV fluids and SANITATION LABORER Dilaudid infusing. Dr. Patel in to see pt and updated. OOb in the chair with call dougherty in reach.
[2024-05-19 18:39] LABS: Glucose - Point of Care 70 mg/dl (70-99)
--- NOTE | 2024-05-19 18:45 | PTCARENOTE ---
Assisted back to bed. Tolerated being oob well. Pulse checks completed with oncoming shift. Pt c/o itching on her arms and legs. No rash noted. Call dougherty in reach. Will update ICU SUPERVISOR WALL MIRROR DEPARTMENT on itching
[2024-05-19] MEDS: BENADRYL 25 MG IV (19:36)
--- NOTE | 2024-05-19 20:30 | PTCARENOTE ---
Alert and oriented, pain controlled with GRAPHIC COORDINATOR dilaudid. Pulses strong via doppler. BP within ordered limits without medications. D5NS as ordered, will recheck as ordered. NGT removed on previous shift. No flatus. Hypoactive bowel sounds. Ice chips as
ordered. Will monitor.
[2024-05-19 23:18] LABS: Glucose - Point of Care 90 mg/dl (70-99)
[2024-05-20] VITALS (19 sets, daily range): BP systolic 115–162; BP diastolic 55–98; PULSE 108; O2SAT 97; BMI 37.3
[2024-05-20] MEDS: D5/0.9% SODIUM CHLORIDE 1000 IV (01:10)
[2024-05-20 04:34] LABS: Hemoglobin 9.7 g/dL (12.0-16.0); Mean Corp Hgb Conc. 33.4 g/dL (33.0-37.0); Mean Corpuscular Hgb 29.4 pg (27.0-31.0); Mean Corpuscular Volume 87.9 fL (81.0-99.0); Mean Platelet Volume 9.6 fL (7.4-10.4); Platelet Count 112 10^3/uL (130-400); Red Cell Dist. Width 14.8 % (11.5-14.5); White Blood Cell Count 10.7 10^3/uL (4.8-10.8)
[2024-05-20 04:59] LABS: Blood Urea Nitrogen 14 mg/dl (7-17); Carbon Dioxide 20 mmol/L (22-30); Chloride 114 mmol/L (98-107); Estimated Creatinine Clearance 91 ml/min; Glucose 95 mg/dl (70-99); Lactic Acid 0.6 mmol/L (0.7-2.0); Magnesium 2.1 mg/dl (1.6-2.3); Potassium 3.4 mmol/L (3.5-5.1); Sodium 141 mmol/L (135-145); eGFR > 60.00
[2024-05-20] MEDS: KCL 270 MEQ IV ×2 (06:19→16:24)
--- NOTE | 2024-05-20 07:36 | W.PN.VS ---
Addendum entered and electronically signed by Jamaal Patel MD 05/20/24 16:32:
Seen and examined earlier this a.m. This is a late entry. Agree with findings and plan as discussed and noted below.
Original Note:
Today's Communication / Plan
-
Patient seen and examined at bedside with Dr. Jamaal Patel, below plan reviewed with attending.
Assessment/Plan
-
Assessment: 69-year-old female POD #3 aortobifem bypass with bilateral femoral endarterectomies
Plan:
Continue I and O monitoring
Lasix 20mg IV for positive fluid balance, will discontinue Villa this afternoon after diureses
OOB to chair with progression to ambulation as tolerated
PT
Can be downgraded to telemetry
DVT prophylaxis
GI prophylaxis
Encourage incentive spirometry
Patient reporting flatus will advance diet to clears
Will attempt peripheral IV placement if unable to ronan PIV, we will consider midline placement in order to dc central line
If patient tolerates PO intake will transition to PO pain medication
Subjective Data
-
Date of Service: May 20, 2024
Patient seen and examined offers no complaints, reports flatus. Denies nausea, vomiting, fever, and chills.
Objective Data
-
Vital Signs
Temp Pulse Resp BP Pulse Ox
99.4 F 99 20 143/55 94
05/20/24 03:09 05/20/24 05:30 05/20/24 05:30 05/20/24 05:06 05/20/24 05:30
Intake and Output
05/19/24 05/20/24 05/21/24
06:59 06:59 06:59
Intake Total 6525 / 6600 2065.1 / 2065.1
Output Total 1515 / 1585 1180 / 1180
Balance 5010 / 5015 885.1 / 885.1
Intake:
IV fluids (Total) 6325 / 6400 1815.1 / 1815.1
D5/0.9% Sodium Chloride 1,000 1125 / 1125
ml @ 75 mls/hr IV .[id number] LESLIE
Rx#:[id number]
NSS BOLUS 3000 / 3000
Nss 1,000 ml @ 75 mls/hr IV . 3225 / 3300 675 / 675
[id number] LESLIE Rx#:[id number]
albumin 100 / 100
glue spreading machine operator dilaudid 15.1 / 15.1
IV piggybacks 200 / 200 250 / 250
Output:
Gastrointestinal tube output ( 500 / 500 75 / 75
Total)
[place] Sump 500 / 500 75 / 75
Urine, Villa 1015 / 1085 1105 / 1105
Lab Results
05/20/24 04:18
05/20/24 04:18
Calcium 8.0 mg/dl (8.4-10.2) L 05/20/24 04:18
Phosphorus 2.4 mg/dl (2.5-4.5) L 05/19/24 04:18
Magnesium 2.1 mg/dl (1.6-2.3) 05/20/24 04:18
Total Bilirubin 1.2 mg/dl (0.2-1.3) 05/17/24 22:08
AST 41 U/L (14-36) H 05/17/24 22:08
ALT 17 U/L (0-35) 05/17/24 22:08
Alkaline Phosphatase 46 U/L (38-126) 05/17/24 22:08
Total Protein 4.9 g/dl (6.3-8.2) L 05/17/24 22:08
Albumin 2.5 g/dl (3.5-5.0) L 05/17/24 22:08
Physical Exam
-
AAO x 3, no apparent distress
No tachycardia
No dyspnea on room air
ABD nondistended, midline abdominal incision dressing CDI, tender over midline incision
Bilateral groin site dressing CDI, no evidence of hematoma, all surrounding compartments soft
Villa draining clear yellow urine
Bilateral feet warm, DP/PT pulse by Doppler
[2024-05-20 07:54] LABS: Glucose - Point of Care 88 mg/dl (70-99)
--- NOTE | 2024-05-20 08:00 | PTCARENOTE ---
Pt rec'd in report from night RN, A0x3 pleasant and cooperative, KAUR, pain well controlled by Dilaudid RIB CHOPPER -currently 5/10 in abdomen. 0.4mg dose, 10 min lockout, Max dose 2.4 mg/hr. Used 3.2 mg overnight per report. Vascular check WNL. Extremities
are pink and warm. + PT and DP pulses to bilateral LE via dopplar. Afebrile,pt maintaining 97% sa02 on room air. BP and HR stable, SR/ST on tele. Round obese abdomen, +flatus, tolerating ice chips overnight, looking forward to drinking ice water.
Abdominal dressings in place, ZAKIYA drain activated with green light on. Vascular team at bedside to round, plan discussed, IVF dc'd, CLD ordered, VAT RN in room to assess pt for PIV access, no success-orders rec'd to pull TL IJ after midline placed.
Villa remains in place this am, as per Dr. Patel, ok to remove after pt diureses today. IV Lasix ordered and given. Pt with no complaints at this time, education provided on how to call for clear liquid tray. Pt declines to get oob this am, wants to
nap this am and get oob at approx 11:30. Safe environment maintained, call dougherty in hand.
--- NOTE | 2024-05-20 08:12 | W.PN.INTV ---
Today's Communication / Plan
Recommendations
Up OOB as tolerated
Pain control with serial abdominal exams
On clear liquid diet - ADAT as per surgery
Post-operative management per vascular surgery
Encourage IS use q1hr while awake
Neurovascular checks
Insert PICC vs midline and remove R-IJ CVC
Continue to trend plt count and H/H --> transfuse if needed to keep plt>50k, Hb>7
Patient is stable for downgrade out of ICU to telemetry - this decision was confirmed with vascular surgery. No additional recommendations at this time - Color Straining Bag Washer/Pulmonary service will now sign off. Please reconsult if there are any additional
questions/concerns, or if patient's respiratory status deteriorates.
Assessment
-
Assessment: 69-year-old female former tobacco smoker with a past medical history of PAD with intermittent claudication, right carotid artery stenosis, hyperlipidemia, hypertension, and history of heart palpitations who presents with elective lower
extremity femoral bypass with femoral endarterectomies. Patient known to vascular surgery service with last visit on 04/16/[address] Patel. Patient has extensive atherosclerotic disease which was shown on CTA abdominal aorta with runoff from
03/31/2024. The distal abdominal aorta has >70% stenosis just proximal to the iliac bifurcation. She has severe multifocal stenoses throughout the iliofemoral, femoral-popliteal, and infrapopliteal arteries with three-vessel runoff on the left and
at least a two-vessel runoff on the right. Also occlusion of the left common and internal iliac arteries with distal reconstitution via the epigastric artery. Bilateral internal iliac arteries are occluded. Vascular intervention was discussed and
patient agreed to an aortobifemoral artery bypass with possible endarterectomies. Today she underwent aortobifemoral bypass with bilateral femoral neurectomies with no immediate complications. Postoperatively she did require 2 units PRBC
transfusions due to bleeding. She also was hypotensive with SBP in the 80s and required Hans-Synephrine. Patient being transferred to the ICU for further care, and embedded software programmer services consulted for additional management/recommendations.
Chronic conditions BODY DESIGNER: Hypertension, hyperlipidemia, PAD with intermittent claudication, former tobacco smoker, heart palpitations, right carotid artery stenosis, history of atypical chest pain
Impression:
#PAD s/p aortobifemoral bypass with bilateral femoral endarterectomies (POD #3)
#Acute anemia due to above (s/p 3 units PRBC in PACU on 05/17/2024)
#Orthopnea suspicious for acute heart failure from hypervolemia
#Hypotension without shock - now normotensive
#Thrombocytopenia - improving
#Leukocytosis � likely reactive due to above - WBC now normalized
#Mild�moderate elevation of right hemidiaphragm (most appreciated initially on CXR from 05/18/2024)
#Metabolic acidosis with normal anion gap with acute respiratory acidosis (under-compensated) - suspected to be due to surgery with transient hypotension with lactic acidosis
#Lactic acidosis - now resolved
#Hypocalcemia
#Former tobacco smoker with >90 pack-year Hx (quit 1998)
#HTN
#HLD
#Right carotid artery stenosis
#Obesity (BMI: 33.6)
Plan:
Postoperative surgical intensive care unit monitoring
Supplemental oxygen as needed to maintain SpO2 >90-94%
prn nebulized bronchodilators - not currently bronchospastic
Incentive spirometry encouraged 10x per hour for at least 4 hrs a day
Aspiration precautions
Pain control with dilaudid OPERATIONS AGENT pump with bowel regimen
NGT now removed as of AM on 05/19
- Defer diet to surgery - currently on CLD
- Serial abdominal exams
Neuro and vascular checks per protocol
Maintain MAP>65 currently on Hans-Synephrine at 30mcg/min --> wean as tolerated
Replete electrolytes with K>4, Mg>2
Maintain euglycemia with goal BG 140-180
Vascular surgery following-correspondence and operative notes reviewed
Continue ASA
Transfuse blood products as needed to keep Hb>7g/dL, and plt>50k (given post-operative status)
Has required 3 units PRBC transfusion since admission with last PRBC transfusion on 05/17/2024
Given that she quit smoking >15 years ago, she does not qualify for lung cancer screening via LDCT chest
DVT prophylaxis: HSQ
Early nutrition
Early mobilization as tolerated
Patient is stable for downgrade out of ICU to telemetry. This decision was confirmed with vascular surgery. No additional recommendations at this time - Color Straining Bag Washer/Pulmonary service will now sign off. Thank you for allowing us to be involved in
the care of this patient. Please reconsult if there are any additional questions/concerns, or if patient's respiratory status deteriorates.
Total time spent today was 36 minutes for this encounter. Time includes reviewing laboratory test/imaging results, reviewing pertinent medical records, obtaining and reviewing medical history, performing an appropriate exam, ordering medications,
tests and procedures. Time also includes documentation of this encounter, coordinating patient care and communicating with other healthcare professionals. Total time does not include separately billed tests performed on this date of service.
Data:
CTA Abd aorta with runoff 03/31/2024:
Marked atherosclerotic disease throughout the arterial vasculature of the abdomen, pelvis, and bilateral lower extremities discussed in detail above. The distal abdominal aorta demonstrates greater than 70% stenosis just proximal to the iliac
bifurcation. There is occlusion of the left common and internal iliac arteries with distal reconstitution via the epigastric artery. Bilateral internal iliac arteries are occluded. Severe multifocal stenoses throughout the iliofemoral, femoral
popliteal, and infrapopliteal arteries with at least a two-vessel runoff on the right (right posterior tibial artery is questionably patent) and a 3 vessel runoff on the left.
Subjective Dataa
Subjective Data
Date of Service:
Date of Service: May 20, 2024
Chief Complaint: Color Straining Bag Washer Follow Up
Subjective:
Patient seen and evaluated this morning. Laying in bed in no acute distress. Heart rate 91, BP 125/68, and saturating 98% on room air. Afebrile overnight. No overnight events reported. Started on clear liquid diet. Still having abd pain, is
5/10 on pain scale. She overall feels well although she does have some discomfort in her inner thighs.
Review of Systems
General: Other (Negative unless mentioned above)
Objective Data
Data Reviewed
Vital Signs / I&O / Oxygen:
Vital Signs
Temp Pulse Resp BP Pulse Ox
99.2 F 105 23 124/70 96
05/20/24 08:05 05/20/24 09:00 05/20/24 09:00 05/20/24 09:00 05/20/24 09:00
Intake and Output
05/19/24 05/20/24 05/21/24
06:59 06:59 06:59
Intake Total 6525 / 6600 2065.1 / 2065.1 0 / 0
Output Total 1515 / 1585 1180 / 1180 230 / 230
Balance 5010 / 5015 885.1 / 885.1 -230 / -230
SaO2 96
Nasal Cannula flow liters per 2
minute
Physical Exam
General: Respiratory Distress (negative), Comfortable, Chills (negative), Sweats (negative) and Good Appetite
HEENT: Normocephalic, Anicteric and Other (Dry mucous membranes)
Cardiovascular: S1-S2, Peripheral Edema (+1 lower extremity pitting edema bilaterally) and Other (Tachycardic)
Respiratory: Wheeze (negative), Crackles (Left base), Rhonchi (negative) and Non-Labored Respirations
GI: Soft, Non Distended, Tender (diffusely tender (mild) to palpation) and Normal Bowel Sounds
Neurology: AO x 3 and Tremors (negative)
Skin: Warm, Dry, Cyanosis (negative) and Jaundice (negative)
Labs/Micro/Reports
Lab Data
05/20/24 04:18
[2024-05-20] MEDS: ASPIRIN RECTAL (08:22)
[2024-05-20] MEDS: LASIX 20 MG IV (08:53)
[2024-05-20] MEDS: HEPARIN 5000 UNITS SC ×2 (08:54→16:24)
[2024-05-20] MEDS: ASPIR LOW (ENTERIC COATED) 81 MG PO (08:54)
--- NOTE | 2024-05-20 11:43 | PTCARENOTE ---
Pt assisted oob to chair, assist x1, tolerated transfer well, c/o mod pain to b/l groins. Diuresing via nava, urine clear. No other changes to assessment at this time.
[2024-05-20 12:07] LABS: Glucose - Point of Care 80 mg/dl (70-99)
[2024-05-20 13:01] LABS: Potassium 3.4 mmol/L (3.5-5.1)
[2024-05-20] MEDS: TYLENOL 650 MG PO ×2 (16:24→21:04)
[2024-05-20] MEDS: COLACE 100 MG PO (16:24)
--- NOTE | 2024-05-20 16:34 | PTCARENOTE ---
Pt reassessed. Per orders, nava catheter dc'd, Dilaudid INSTRUCTOR ROBOTICS dc'd. Orders for PRN and scheduled pain medication rec'd. Downgraded to tele. Continues to tolerate clears. +flatus. PRN Colace added per pt request. Pt ambulating in morejon with therapy.
Assessment otherwise unchanged.
[2024-05-20 18:00] LABS: Glucose - Point of Care 93 mg/dl (70-99)
--- NOTE | 2024-05-20 19:15 | PTCARENOTE ---
rn pediatric icu, pt aao x 3, pt reports pain level tolerable, SR HR 80s, R midline WNL, NV checks as documented, pt assist x 1/walker to bathroom- +BM/+lg amt urine s/p nava removal, HR ST 120s w/ambulation. Sat 96% on RA. KEIRA & B/L groin intact with
ZAKIYA drains. POC discussed, call dougherty with pt.
[2024-05-20] MEDS: LIPITOR 40 MG PO (21:04)
[2024-05-20 21:44] LABS: Glucose - Point of Care 92 mg/dl (70-99)
[2024-05-21] VITALS (7 sets, daily range): BP systolic 131–154; BP diastolic 63–69; PULSE 107; O2SAT 98; BMI 36.6
[2024-05-21] MEDS: HEPARIN 5000 UNITS SC ×4 (00:10→23:37)
[2024-05-21] MEDS: TYLENOL 650 MG PO ×6 (00:11→20:42)
[2024-05-21 05:33] LABS: Hematocrit 30.3 % (37.0-47.0); Hemoglobin 10.6 g/dL (12.0-16.0); Mean Corpuscular Hgb 30.4 pg (27.0-31.0); Mean Corpuscular Volume 86.8 fL (81.0-99.0); Mean Platelet Volume 9.6 fL (7.4-10.4); Platelet Count 129 10^3/uL (130-400); Red Blood Cell Count 3.49 10^6/uL (4.20-5.40); Red Cell Dist. Width 14.4 % (11.5-14.5); White Blood Cell Count 10.4 10^3/uL (4.8-10.8)
[2024-05-21 05:56] LABS: Blood Urea Nitrogen 15 mg/dl (7-17); Calcium 8.1 mg/dl (8.4-10.2); Carbon Dioxide 22 mmol/L (22-30); Chloride 108 mmol/L (98-107); Estimated Creatinine Clearance 105 ml/min; Glucose 92 mg/dl (70-99); Potassium 3.8 mmol/L (3.5-5.1); Sodium 139 mmol/L (135-145); eGFR > 60.00
[2024-05-21 07:42] LABS: Glucose - Point of Care 87 mg/dl (70-99)
--- NOTE | 2024-05-21 08:10 | PTCARENOTE ---
ms sql developer, pt aao x 3, pt reports pain level tolerable, SR HR 80s, R midline WNL, NV checks as documented, pt assist x 1/walker to bathroom- +BM/+lg amt urine. Sat 96% on RA. Midline abd & B/L groin incision intact with ZAKIYA drains. POC
discussed, call dougherty with pt.
[2024-05-21] MEDS: ASPIR LOW (ENTERIC COATED) 81 MG PO (08:18)
--- NOTE | 2024-05-21 09:30 | CM ---
Increasing diet to clear liquids.
Increase OOB today.
PT recommended VN .
As per care port [facility] accepted her.
Pain med as needed .
PLAN Home with [facility]
--- NOTE | 2024-05-21 12:13 | W.PN.VS ---
Today's Communication / Plan
-
Seen and assessed with Dr. Villa
Assessment/Plan
-
Assessment: 69-year-old female POD #4 aortobifem bypass with bilateral femoral endarterectomies
Plan:
Continue I and O monitoring
Lasix 20mg PO for positive fluid balance
OOB/ambulation
PT
Can be downgraded to telemetry
Encourage incentive spirometry
Advance diet today, take slow
P.o. pain medication
Subjective Data
-
Date of Service: May 21, 2024
Patient seen at bedside this a.m. she offers no complaints at this time. Patient had BM and has been voiding on her own easily. She states she still feels a bit 'puffy' today. No events overnight
Objective Data
-
Vital Signs
Temp Pulse Resp BP Pulse Ox
97.8 F 80 23 146/69 96
05/21/24 08:11 05/21/24 08:00 05/21/24 08:00 05/21/24 08:00 05/21/24 08:00
Intake and Output
05/20/24 05/21/24 05/22/24
06:59 06:59 06:59
Intake Total 2065.1 / 2065.1 1684 / 1684
Output Total 1180 / 1180 2080 / 2080
Balance 885.1 / 885.1 -396 / -396
Intake:
Oral fluids 1414 / 1414
IV fluids (Total) 1815.1 / 1815.1 0 / 0
D5/0.9% Sodium Chloride 1,000 1125 / 1125 0 / 0
ml @ 75 mls/hr IV .[id number] LESLIE
Rx#:[id number]
Nss 1,000 ml @ 75 mls/hr IV . 675 / 675
[id number] LESLIE Rx#:[id number]
instantizer operator dilaudid 15.1 / 15.1
IV piggybacks 250 / 250 270 / 270
Output:
Gastrointestinal tube output (
Total)
Treasure Sump 75 /
Urine, Villa 1105 / 1105 2079 / 2079
Other:
Number of approximated LARGE 1
amounts of urine
Lab Results
05/21/24 05:15
05/21/24 05:15
Calcium 8.1 mg/dl (8.4-10.2) L 05/21/24 05:15
Phosphorus 2.4 mg/dl (2.5-4.5) L 05/19/24 04:18
Magnesium 2.0 mg/dl (1.6-2.3) 05/21/24 05:15
Total Bilirubin 1.2 mg/dl (0.2-1.3) 05/17/24 22:08
AST 41 U/L (14-36) H 05/17/24 22:08
ALT 17 U/L (0-35) 05/17/24 22:08
Alkaline Phosphatase 46 U/L (38-126) 05/17/24 22:08
Total Protein 4.9 g/dl (6.3-8.2) L 05/17/24 22:08
Albumin 2.5 g/dl (3.5-5.0) L 05/17/24 22:08
Physical Exam
-
AAO x 3, no apparent distress
No tachycardia
No dyspnea on room air
ABD nondistended, midline abdominal incision dressing CDI, tender over midline incision
Bilateral groin site dressing CDI, no evidence of hematoma, all surrounding compartments soft
Bilateral feet warm, DP/PT pulse by Doppler
[2024-05-21] MEDS: LASIX 20 MG PO (12:56)
--- NOTE | 2024-05-21 15:22 | W.[place]-PDMP ---
[place]PD[place]
-
Checked the [place]- Prescription Drug Monitoring Program website, no red flags identified; safe to proceed with prescription.
[2024-05-21] MEDS: LIPITOR 40 MG PO (20:43)
[2024-05-22] VITALS (9 sets, daily range): BP systolic 144–175; BP diastolic 59–90; BMI 36.4
[2024-05-22] MEDS: TYLENOL PO ×3 (01:16→12:23)
--- NOTE | 2024-05-22 02:21 | PTCARENOTE ---
Assumed care of pt at 1900. Pt is A/O x4, pleasant and cooperative with care. Able to ambulate with standby assistance and rolling walker, has been OOB to bathroom x2 so far this shift. SR 70s-80s on monitor, SpO2 96% on RA. See nursing shift
assessment flowsheet and neurovascular assessment flowsheet for full assessment details. Pt is telemetry level of care.
[2024-05-22 03:58] LABS: Hematocrit 30.5 % (37.0-47.0); Hemoglobin 10.5 g/dL (12.0-16.0); Mean Corp Hgb Conc. 34.4 g/dL (33.0-37.0); Mean Corpuscular Hgb 29.7 pg (27.0-31.0); Mean Corpuscular Volume 86.2 fL (81.0-99.0); Mean Platelet Volume 9.3 fL (7.4-10.4); Platelet Count 156 10^3/uL (130-400); Red Blood Cell Count 3.54 10^6/uL (4.20-5.40); Red Cell Dist. Width 13.9 % (11.5-14.5); White Blood Cell Count 9.7 10^3/uL (4.8-10.8)
[2024-05-22 04:04] LABS: Blood Urea Nitrogen 18 mg/dl (7-17); Carbon Dioxide 20 mmol/L (22-30); Chloride 108 mmol/L (98-107); Estimated Creatinine Clearance 90 ml/min; Glucose 71 mg/dl (70-99); Potassium 3.4 mmol/L (3.5-5.1); Sodium 140 mmol/L (135-145); eGFR > 60.00
--- NOTE | 2024-05-22 07:08 | W.PN.VS ---
Today's Communication / Plan
-
possible DC 05/23
Assessment/Plan
-
Assessment: 69-year-old female POD #5 aortobifem bypass with bilateral femoral endarterectomies
Plan:
Continue I and O monitoring
OOB/ambulation
PT
Can be downgraded to telemetry
Encourage incentive spirometry
Advance diet today, take slow
P.o. pain medication
DC 05/23
Subjective Data
-
Date of Service: May 22, 2024
resting comfortably in bed. NAEO. minimal PO intake with food
Objective Data
-
Vital Signs
Temp Pulse Resp BP Pulse Ox
98.2 F 70 22 144/59 97
05/22/24 07:00 05/22/24 06:00 05/22/24 06:00 05/22/24 04:00 05/22/24 06:00
Intake and Output
05/21/24 05/22/24 05/23/24
06:59 06:59 06:59
Intake Total 1684 / 1684 750 / 750
Output Total 2079 350 / 350
Balance -396 / -396 400 / 400
Intake:
Oral fluids 1414 / 1414 750 / 750
IV fluids (Total) 0 / 0
D5/0.9% Sodium Chloride 1,000 0 / 0
ml @ 75 mls/hr IV .[id number] LESLIE
Rx#:[id number]
IV piggybacks 270 / 270
Output:
Urine, Villa 2079
Urine, Voided 350 / 350
Other:
Number of approximated MODERATE 1
amounts of urine
Number of approximated LARGE 1
amounts of urine
Lab Results
05/22/24 03:30
05/22/24 03:30
Calcium 8.0 mg/dl (8.4-10.2) L 05/22/24 03:30
Phosphorus 2.4 mg/dl (2.5-4.5) L 05/19/24 04:18
Magnesium 2.0 mg/dl (1.6-2.3) 05/21/24 05:15
Total Bilirubin 1.2 mg/dl (0.2-1.3) 05/17/24 22:08
AST 41 U/L (14-36) H 05/17/24 22:08
ALT 17 U/L (0-35) 05/17/24 22:08
Alkaline Phosphatase 46 U/L (38-126) 05/17/24 22:08
Total Protein 4.9 g/dl (6.3-8.2) L 05/17/24 22:08
Albumin 2.5 g/dl (3.5-5.0) L 05/17/24 22:08
Physical Exam
-
Abd: soft, nt, nd
Ext: warm well perfused
[2024-05-22] MEDS: HEPARIN 5000 UNITS SC ×3 (08:53→23:04)
[2024-05-22] MEDS: TYLENOL 650 MG PO ×4 (08:53→23:04)
[2024-05-22] MEDS: ASPIR LOW (ENTERIC COATED) 81 MG PO (08:53)
[2024-05-22] MEDS: LASIX 20 MG PO (08:55)
[2024-05-22] MEDS: KCL 60 MEQ PO (10:30)
--- NOTE | 2024-05-22 12:00 | PTCARENOTE ---
Rec'd care of patient at 0715. Patient alert and oriented. NSR with PACs, PVCs on tele monitor. Rate in the 60-80's. Neurovascular check wnl. B/l LE pink, warm. B/l dp pulses weak on palpation, dp&pt pulses confirmed with doppler. Abdominal and b/l
groin incisions assessed. Approximated; closed with constanza. Dressings intact. Trace anasarca. 20mg PO Lasix administered as ordered. K 3.4. Vascular surgeon notified. Repleted with 60meq PO KCl. +BS (hypo). Appetite poor. Patient ordered regular
diet. Half a bowl of cereal consumed for breakfast. Refused lunch. +BM/voiding in bathroom. VSS. Right midline capped.
--- NOTE | 2024-05-22 13:54 | CM ---
CM received message from nurse, patient inquiring about walker upon discharge. Patient seen bedside, reports she has a script for a rolling walker, script placed in patients chart, TT to therapy to please provide walker upon discharge tomorrow. CM
will continue to follow for all discharge planning needs.
Plan; home with [facility], please provide walker upon discharge- script in chart.
--- NOTE | 2024-05-22 14:28 | TRANSFER ---
Report given to 2S RN. Patient transported with belongings via wheelchair to 2S. Vitals stable.
[2024-05-22] MEDS: LIPITOR 40 MG PO (22:19)
[2024-05-23 03:29] VITALS: BP 152/69
[2024-05-23] MEDS: TYLENOL PO (04:51)
[2024-05-23 07:15] VITALS: BP 164/69
--- NOTE | 2024-05-23 07:52 | W.PN.VS ---
Today's Communication / Plan
-
DC HOMe
Assessment/Plan
-
Assessment: 69-year-old female POD #6 aortobifem bypass with bilateral femoral endarterectomies
Plan:
Continue I and O monitoring
OOB/ambulation
PT
DC 05/23
Subjective Data
-
Date of Service: May 23, 2024
NAEO. Resting comfortably. Tolerating PO. + BM. Ambulation
Objective Data
-
Vital Signs
Temp Pulse Resp BP Pulse Ox
97.9 F 78 18 152/69 98
05/23/24 03:29 05/23/24 03:29 05/23/24 03:29 05/23/24 03:29 05/23/24 03:29
Intake and Output
05/22/24 05/23/24 05/24/24
06:59 06:59 06:59
Intake Total 750 / 750 480 / 480
Output Total 350 / 350
Balance 400 / 400 480 / 480
Intake:
Oral fluids 750 / 750 480 / 480
Output:
Urine, Voided 350 / 350
Other:
Number of approximated MODERATE 1 2
amounts of urine
Lab Results
05/22/24 03:30
05/22/24 03:30
Calcium 8.0 mg/dl (8.4-10.2) L 05/22/24 03:30
Phosphorus 2.4 mg/dl (2.5-4.5) L 05/19/24 04:18
Magnesium 2.0 mg/dl (1.6-2.3) 05/21/24 05:15
Total Bilirubin 1.2 mg/dl (0.2-1.3) 05/17/24 22:08
AST 41 U/L (14-36) H 05/17/24 22:08
ALT 17 U/L (0-35) 05/17/24 22:08
Alkaline Phosphatase 46 U/L (38-126) 05/17/24 22:08
Total Protein 4.9 g/dl (6.3-8.2) L 05/17/24 22:08
Albumin 2.5 g/dl (3.5-5.0) L 05/17/24 22:08
Physical Exam
-
Abd: soft, nt, nd
Groin: C/D/I
[2024-05-23] MEDS: ASPIR LOW (ENTERIC COATED) 81 MG PO (08:02)
[2024-05-23] MEDS: TYLENOL 650 MG PO (08:05)
[2024-05-23] MEDS: HEPARIN 5000 UNITS SC (08:07)
[2024-05-23 11:31] VITALS: BP 125/78
== END 2024-05-23 13:50 | disposition home health service (06) | DRG 271 ==
LOC: 2 SOUTH 06:00
PROVIDERS: Nurse Practitioner; Nurse Practitioner Acute Care; Nurse Practitioner Family; ADMITTING PHYSICIAN Surgery Vascular Surgery; ATTENDING PHYSICIAN Surgery Vascular Surgery; CONSULT PHYSICIAN Internal Medicine Critical Care Medicine; FAMILY PHYSICIAN Internal Medicine
PROC: 30233N1 Transfusion of Nonautologous Red Blood Cells into Peripheral Vein, Percutaneous Approach (ICD-10-PCS; 2024-05-17)
PROC: 04CK0ZZ Extirpation of Matter from Right Femoral Artery, Open Approach (ICD-10-PCS; 2024-05-17)
PROC: 04100JK Bypass Abdominal Aorta to Bilateral Femoral Arteries with Synthetic Substitute, Open Approach (ICD-10-PCS; 2024-05-17)
PROC: 04CL0ZZ Extirpation of Matter from Left Femoral Artery, Open Approach (ICD-10-PCS; 2024-05-17)
DX: I70.213 Atherosclerosis of native arteries of extremities with intermittent claudication, bilateral legs (principal); D62 Acute posthemorrhagic anemia; I74.09 Other arterial embolism and thrombosis of abdominal aorta; E87.4 Mixed disorder of acid-base balance; E66.9 Obesity, unspecified; Z68.33 Body mass index [BMI] 33.0-33.9, adult; I10 Essential (primary) hypertension; I70.0 Atherosclerosis of aorta; I70.8 Atherosclerosis of other arteries; I65.21 Occlusion and stenosis of right carotid artery; E83.51 Hypocalcemia; E78.5 Hyperlipidemia, unspecified; I95.9 Hypotension, unspecified; Z87.891 Personal history of nicotine dependence; Z82.49 Family history of ischemic heart disease and other diseases of the circulatory system
CPT/HCPCS: 88304; 88311; 35646; 35681; 36415; 71045; 71046; 74018; 80048; 80053; 82962; 83605; 83735; 84100; 84132; 85014; 85018; 85025; 85027; 85610; 85730; 86706; 86803; 86850; 86900; 86901; 86920; 87340; 87389; 97163; 97530; C1757; P9016; P9047

== ENCOUNTER → 2024-07-02 09:34 | Outpatient (REF) | payer OTHER, SELFPAY | LOC: RAD 09:34 | PROVIDERS: ATTENDING PHYSICIAN Registered Nurse; FAMILY PHYSICIAN Internal Medicine | DX: I73.9 Peripheral vascular disease, unspecified (principal) | CPT/HCPCS: 75635; Q9967 ==

== ENCOUNTER → 2024-07-14 08:24 | Outpatient (REF) | payer OTHER, SELFPAY ==
[2024-07-14 09:30] LABS: % Basophils 0.9 % (0-2); % Immature Granulocytes 0.2 % (0-0.5); % Monocytes 6.6 % (1.7-9.3); % Neutrophils 63.3 % (42.2-75.2); Absolute Basophils 0.1 10^3/uL (0-0.2); Absolute Eosinophils 0.3 10^3/uL (0-0.7); Absolute Lymphocytes 1.6 10^3/uL (1.2-3.4); Absolute Monocytes 0.4 10^3/uL (0.1-0.6); Absolute Neutrophils 4.1 10^3/uL (1.4-6.5); Hematocrit 35.9 % (37.0-47.0); Hemoglobin 11.6 g/dL (12.0-16.0); Mean Corp Hgb Conc. 32.3 g/dL (33.0-37.0); Mean Corpuscular Hgb 28.2 pg (27.0-31.0); Mean Corpuscular Volume 87.3 fL (81.0-99.0); Nucleated Red Blood Cells % 0 %; Platelet Count 184 10^3/uL (130-400); Red Blood Cell Count 4.11 10^6/uL (4.20-5.40); Red Cell Dist. Width 14.3 % (11.5-14.5); White Blood Cell Count 6.5 10^3/uL (4.8-10.8)
[2024-07-14 09:46] LABS: Blood Urea Nitrogen 21 mg/dl (7-17); Calcium 9.3 mg/dl (8.4-10.2); Carbon Dioxide 27 mmol/L (22-30); Chloride 101 mmol/L (98-107); Glucose 87 mg/dl (70-99); Potassium 3.9 mmol/L (3.5-5.1); Sodium 138 mmol/L (135-145); eGFR > 60.00
== END ==
LOC: DHVS 08:24
PROVIDERS: ATTENDING PHYSICIAN Surgery Vascular Surgery; FAMILY PHYSICIAN Internal Medicine
DX: I73.9 Peripheral vascular disease, unspecified (principal)
CPT/HCPCS: 36415; 80048; 85025; 93922